=== PATIENT | female | born 1980 | race Caucasian/White ===

== ENCOUNTER 2016-04-27 10:51 | Emergency (ER) | payer OTHER ==
--- NOTE | 2016-04-27 11:10 | ED ---
Female Urogenital HPI - General Chief complaint: Vaginal Bleeding Stated complaint: Bleeding/8wks Time Seen by Provider: 04/27/16 10:58 Source: patient, RN notes reviewed Mode of arrival: ambulatory Limitations: no limitations - History of Present Illness Initial comments: 35 yo female presents to the ER with cc of vaginal bleeding in . Patient is a . Patient states she went to the condition of his blood in the toilet. Patient states that it is spotting. Patient has abdominal pain or cramping. Patient states she has not had an ultrasound this . Patient states she has not seen her POLICY DIRECTOR either. Patient states she was concerned with this. So she thought that she should be evaluated. Patient is not currently having any other that this time.Patient denies any recent fever, chills, shortness of breath, chest pain, back pain, abdominal pain, nausea vomiting, numbness or tingling, dysuria or hematuria, constipation or diarrhea, headaches or visual changes, or any other current symptoms. - Related Data Home Medications Medication Instructions Recorded Confirmed Pnv with Ca,No.72/Iron/FA 1 tab PO DAILY 04/27/16 04/27/16 [ Plus Tablet] Allergies Allergy/AdvReac Type Severity Reaction Status Date / Time latex Allergy Unknown Verified 04/27/16 11:05 Review of Systems ROS Statement: Those systems with pertinent positive or pertinent negative responses have been documented in the HPI. ROS Other: All systems not noted in ROS Statement are negative. Past Medical History Past Medical History: Hyperlipidemia, Seizure Disorder Additional Past Medical History / Comment(s): Migraines, last seizure 2010, UTIs. 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 She is independent. Smoking Status: Former smoker Past Alcohol Use History: None Reported Additional Past Alcohol Use History / Comment(s): Pt started smoking in 1991 and quit in 2014. Past Drug Use History: None Reported - Past Family History Father Family Medical History: Congestive Heart Failure (CHF), Liver Disease, Myocardial Infarction ([place]) Additional Family Medical History / Comment(s): Father of CHF at the age of 57yrs. He also had hepatitis C. Mother Family Medical History: Cancer, Thyroid Disorder Additional Family Medical History / Comment(s): Non hodgkins lymphoma, hypothyroid General Exam - General Exam Comments Initial Comments: General: The patient is awake and alert, in no distress, and does not appear acutely ill. Eye: Pupils are equal, round. Ears, nose, mouth and throat: There are moist mucous membrane. Neck: The neck is supple, there is no tenderness. Cardiovascular: There is a regular rate and rhythm. No murmur, rub or gallop is appreciated. Respiratory: Lungs are clear to auscultation, respirations are non-labored, breath sounds are equal. No wheezes, stridor, rales, or rhonchi. Gastrointestinal: Soft, non-distended, non-tender abdomen without masses or organomegaly noted. There is no rebound or guarding present. No CVA tenderness. Bowel sounds are unremarkable. Back: There is no tenderness to palpation in the midline. There is no obvious deformity. No rashes noted. Musculoskeletal: Normal ROM, no tenderness, There is no pedal edema. There is no calf tenderness or swelling. Sensation intact. Pulses equal bilaterally 2+. Neurological: CN II-XII intact, There are no obvious motor or sensory deficits. Coordination appears grossly intact. Speech is normal. Skin: Skin is warm and dry and no rashes or lesions are noted. Psychiatric: Cooperative, appropriate mood & affect, normal judgment. Limitations: no limitations External exam: Present: normal external exam Speculum exam: Present: vaginal bleeding (Minimal), other (Cervical os closed) Course Vital Signs 04/27/16 10:55 Temperature 98.1 F Pulse Rate 72 Respiratory 17 Rate Blood Pressure 146/83 O2 Sat by Pulse 99 Oximetry Medical Decision Making - Medical Decision Making 35-year-old female presents emergency Department chief complaint of vaginal bleeding in . This and patient's LAB WORK IS REVIEWED. AT THIS TIME WE DID SEND STD TESTING SHE STATES SHE'LL FOLLOW-UP WITH RESTLESSNESS WITH THE POLICY DIRECTOR. THIS TIME WE DID DISCUSS THE RESULTS. WE DISCUSSED FOLLOW-UP AND RETURN PARAMETERS. PATIENT STATED THAT SHE UNDERSTOOD AND ALL HER QUESTIONS HAVE BEEN ANSWERED. SHE WILL BE DISCHARGED. - Lab Data Result diagrams: 04/27/16 11:35 02/07/17 11:35 Lab Results 04/27/16 04/27/16 04/27/16 Range/Units 11:35 11:35 11:35 WBC 9.0 (3.8-10.6) k/uL RBC 4.51 (3.80-5.40) m/uL Hgb 13.2 (11.4-16.0) gm/dL Hct 40.0 (34.0-46.0) % MCV 88.7 (80.0-100.0) fL MCH 29.2 (25.0-35.0) pg MCHC 32.9 (31.0-37.0) g/dL RDW 13.1 (11.5-15.5) % Plt Count 331 (150-450) k/uL Neutrophils % 67 % Lymphocytes % 24 % Monocytes % 4 % Eosinophils % 2 % Basophils % 1 % Neutrophils # 6.0 (1.3-7.7) k/uL Lymphocytes # 2.2 (1.0-4.8) k/uL Monocytes # 0.4 (0-1.0) k/uL Eosinophils # 0.2 (0-0.7) k/uL Basophils # 0.1 (0-0.2) k/uL Sodium 140 (137-145) mmol/L Potassium 4.3 (3.5-5.1) mmol/L Chloride 102 (98-107) mmol/L Carbon Dioxide 25 (22-30) mmol/L Anion Gap 13 mmol/L BUN 10 (7-17) mg/dL Creatinine 0.62 (0.52-1.04) mg/dL Est GFR (MDRD) Af Amer >60 (>60 ml/min/1.73 sqM) Est GFR (MDRD) Non-Af >60 (>60 ml/min/1.73 sqM) Glucose 88 (74-99) mg/dL Calcium 9.6 (8.4-10.2) mg/dL Total Bilirubin 0.3 (0.2-1.3) mg/dL AST 18 (14-36) U/L ALT 25 (9-52) U/L Alkaline Phosphatase 68 (38-126) U/L Total Protein 7.4 (6.3-8.2) g/dL Albumin 4.3 (3.5-5.0) g/dL Urine Color Urine Appearance (Clear) Urine pH (5.0-8.0) Ur Specific [place] (1.001-1.035) Urine Protein (Negative) Urine Glucose (UA) (Negative) Urine Ketones (Negative) Urine Blood (Negative) Urine Nitrate (Negative) Urine Bilirubin (Negative) Urine Urobilinogen (<2.0) mg/dL Ur Leukocyte Esterase (Negative) Urine RBC (0-5) /hpf Urine WBC (0-5) /hpf Ur Squamous Epith Cells (0-4) /hpf Urine Bacteria (None) /hpf Urine Mucus (None) /hpf Blood Type O Positive Blood Type Recheck No 04/27/16 Range/Units 11:35 WBC (3.8-10.6) k/uL RBC (3.80-5.40) m/uL Hgb (11.4-16.0) gm/dL Hct (34.0-46.0) % MCV (80.0-100.0) fL MCH (25.0-35.0) pg MCHC (31.0-37.0) g/dL RDW (11.5-15.5) % Plt Count (150-450) k/uL Neutrophils % % Lymphocytes % % Monocytes % % Eosinophils % % Basophils % % Neutrophils # (1.3-7.7) k/uL Lymphocytes # (1.0-4.8) k/uL Monocytes # (0-1.0) k/uL Eosinophils # (0-0.7) k/uL Basophils # (0-0.2) k/uL Sodium (137-145) mmol/L Potassium (3.5-5.1) mmol/L Chloride (98-107) mmol/L Carbon Dioxide (22-30) mmol/L Anion Gap mmol/L BUN (7-17) mg/dL Creatinine (0.52-1.04) mg/dL Est GFR (MDRD) Af Amer (>60 ml/min/1.73 sqM) Est GFR (MDRD) Non-Af (>60 ml/min/1.73 sqM) Glucose (74-99) mg/dL Calcium (8.4-10.2) mg/dL Total Bilirubin (0.2-1.3) mg/dL AST (14-36) U/L ALT (9-52) U/L Alkaline Phosphatase (38-126) U/L Total Protein (6.3-8.2) g/dL Albumin (3.5-5.0) g/dL Urine Color Light Yellow Urine Appearance Cloudy H (Clear) Urine pH 6.5 (5.0-8.0) Ur Specific [place] 1.006 (1.001-1.035) Urine Protein Negative (Negative) Urine Glucose (UA) Negative (Negative) Urine Ketones Negative (Negative) Urine Blood Moderate H (Negative) Urine Nitrate Negative (Negative) Urine Bilirubin Negative (Negative) Urine Urobilinogen <2.0 (<2.0) mg/dL Ur Leukocyte Esterase Small H (Negative) Urine RBC 1 (0-5) /hpf Urine WBC 1 (0-5) /hpf Ur Squamous Epith Cells 5 H (0-4) /hpf Urine Bacteria Rare H (None) /hpf Urine Mucus Rare H (None) /hpf Blood Type Blood Type Recheck Disposition Clinical Impression: , Subchorionic bleed Disposition: HOME SELF-CARE Condition: Stable Instructions: (ED) Additional Instructions: Please use medication as discussed. Please follow up with family doctor if symptoms have not improved over the next two days. Please return to the emergency room if your symptoms increase or worsen or for any other concerns. Referrals: Joana Carmen MD [Primary Care Provider] - 1-2 days Time of Disposition: 12:41
[2016-04-27 11:51] LABS: Basophils # (A) 0.1 k/uL (0-0.2); Basophils % (A) 1 %; CH 30.3; CHCM 34.3; Eosinophils # (A) 0.2 k/uL (0-0.7); Eosinophils % (A) 2 %; HDW 2.48; HGB 13.2 gm/dL (11.4-16.0); Luc % (Auto) 2; Lymphocytes # (A) 2.2 k/uL (1.0-4.8); Lymphocytes % (A) 24 %; MCH 29.2 pg (25.0-35.0); MCHC 32.9 g/dL (31.0-37.0); MCV 88.7 fL (80.0-100.0); Mean Platelet Volume 5.9; Monocytes # (A) 0.4 k/uL (0-1.0); Monocytes % (A) 4 %; Neutrophils % (A) 67 %; RBC 4.51 m/uL (3.80-5.40); RDW 13.1 % (11.5-15.5)
[2016-04-27 11:53] LABS: Appearance,Urine Cloudy (Clear); Bacteria,Urine Rare /hpf; Bilirubin,Urine Negative (Negative); Glucose,Urine (UA) Negative (Negative); Ketones,Urine Negative (Negative); Leukocyte Esterase,Urine Small (Negative); Mucus,Urine Rare /hpf; Nitrite,Urine Negative (Negative); PH, Urine 6.5 (5.0-8.0); Particle Count 3477; Protein,Urine Negative (Negative); RBC,Urine 1 /hpf (0-5); Specific Gravity,Urine 1.006 (1.001-1.035); Squamous Epithelial Cell,Urine 5 /hpf (0-4); UA Billing (MACRO vs. MICRO) MICRO; Urobilinogen,Urine <2.0 mg/dL (<2.0); WBC,Urine 1 /hpf (0-5)
[2016-04-27 12:02] LABS: ALT 25 U/L (9-52); AST 18 U/L (14-36); Alkaline Phosphatase 68 U/L (38-126); Anion Gap 13 mmol/L; Blood Urea Nitrogen 10 mg/dL (7-17); Calcium 9.6 mg/dL (8.4-10.2); Carbon Dioxide 25 mmol/L (22-30); Chloride 102 mmol/L (98-107); Glucose 88 mg/dL (74-99); Non-African American GFR(MDRD) >60 (>60 ml/min/1.73 sqM); Potassium 4.3 mmol/L (3.5-5.1); Sodium 140 mmol/L (137-145); Total Bilirubin 0.3 mg/dL (0.2-1.3); Total Protein 7.4 g/dL (6.3-8.2)
--- NOTE | 2016-04-27 12:24 | US ---
EXAMINATION TYPE: US OB <=14 wks transvag DATE OF EXAM: 04/27/2016 12:04 PM COMPARISON: NONE CLINICAL HISTORY: Pain. Spotting, right oopherectomy EXAM PERFORMED: Transvaginal (TV) and Transabdominal (TA) EXAM MEASUREMENTS: GESTATIONAL AGE / DATING Physician Established: not established Dates by LMP: (7 weeks/5 days) EDC: 12/09/16 Dates by First Scan: no prior scan Dates by Current Scan for: (8 weeks/0 days) EDC: 12/07/16 MATERNAL ANATOMY Uterus: 12.1 x 6.6 x 8.2cm Right Ovary: surgically absent Left Ovary: unable to visualize Post CDS / Adnexa: appears wnl Presence of free fluid: no Presence of subchorionic bleed: yes, inferior to gestational sac = 1.6cm GESTATION / SURVEY CRL: 1.7cm (8 weeks/0 days) Yolk Sac (normal less than 6mm): 0.5cm Heart Rate: 167 bpm Rhythm: Normal IUP: Viable IUP Date of LMP: 03/04/16 Beta HcG (if available): unavailable IMPRESSION: 1. Single viable IUP 8wks/0days with JES of 12/07/16. 2. Small subchorionic hemorrhage inferior to gestational sac.
[2016-04-27 12:43] LABS: HCG,Quantitative Serum 69180.4 mIU/mL
[2016-04-27 12:55] VITALS: BP 140/90; PULSE 68; RESP 20; TEMP 98.5
== END 2016-04-27 12:54 | disposition home or self-care (01) ==
LOC: EC 10:51
DX: O20.9 Hemorrhage in early pregnancy, unspecified (principal); Z3A.08 8 weeks gestation of pregnancy; Z91.040 Latex allergy status; Z87.891 Personal history of nicotine dependence
CPT/HCPCS: 36415; 76801; 76817; 80053; 81001; 84702; 85025; 86900; 86901; 87070; 87086; 87205; 87491; 87591; 87808; 99284

== ENCOUNTER 2016-05-29 16:06 | Emergency (ER) | payer OTHER ==
[2016-05-29 16:12] VITALS: BP 124/63; PULSE 72; RESP 20; TEMP 98
--- NOTE | 2016-05-29 16:48 | ED ---
Female Urogenital HPI - General Chief complaint: Vaginal Bleeding Stated complaint: moderate to heavy spotting; 13 weeks pg Time Seen by Provider: 05/29/16 16:16 Source: patient, RN notes reviewed Mode of arrival: ambulatory Limitations: no limitations - History of Present Illness Initial comments: This a 35-year-old female presents emergency Department chief complaint vaginal bleeding. Patient is A3 presents today with chief complaint vaginal bleeding. Patient states she did have some bleeding early on the around 8 weeks. Patient states she just saw her MARKETING ANALYTICS ANALYST and clinical biochemical geneticist and had ultrasound which showed no acute abnormality. Patient denies any dysuria or hematuria. Denies any nausea vomiting diarrhea constipation. She states she has very minimal to no cramping or pain at all at this time. Patient had prior C-sections. Patient MARKETING ANALYTICS ANALYST is in [place]. - Related Data Home Medications Medication Instructions Recorded Confirmed Pnv with Ca,No.72/Iron/FA 1 tab PO DAILY 04/27/16 04/27/16 [ Plus Tablet] Allergies Allergy/AdvReac Type Severity Reaction Status Date / Time latex Allergy Unknown Verified 05/29/16 16:12 Review of Systems ROS Statement: Those systems with pertinent positive or pertinent negative responses have been documented in the HPI. ROS Other: All systems not noted in ROS Statement are negative. Past Medical History Past Medical History: Hyperlipidemia, Seizure Disorder Additional Past Medical History / Comment(s): Migraines, last seizure 2010, UTIs. 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 She is independent. Smoking Status: Former smoker Past Alcohol Use History: None Reported Additional Past Alcohol Use History / Comment(s): Pt started smoking in 1991 and quit in 2014. Past Drug Use History: None Reported - Past Family History Father Family Medical History: Congestive Heart Failure (CHF), Liver Disease, Myocardial Infarction ([place]) Additional Family Medical History / Comment(s): Father of CHF at the age of 57yrs. He also had hepatitis C. Mother Family Medical History: Cancer, Thyroid Disorder Additional Family Medical History / Comment(s): Non hodgkins lymphoma, hypothyroid General Exam Limitations: no limitations General appearance: alert, in no apparent distress, obese Respiratory exam: Present: normal lung sounds bilaterally. Absent: respiratory distress, wheezes, rales, rhonchi, stridor Cardiovascular Exam: Present: regular rate, normal rhythm, normal heart sounds. Absent: systolic murmur, diastolic murmur, rubs, gallop, clicks GI/Abdominal exam: Present: soft, normal bowel sounds. Absent: distended, tenderness, guarding, rebound, rigid Back exam: Absent: CVA tenderness (R), CVA tenderness (L) Skin exam: Present: warm, dry, intact, normal color. Absent: rash Course Vital Signs 05/29/16 16:10 Temperature 98.0 F Pulse Rate 72 Respiratory 20 Rate Blood Pressure 124/63 O2 Sat by Pulse 98 Oximetry Medical Decision Making - Medical Decision Making 35-year-old female presented emergency department vaginal bleeding . Patient's ultrasound shows no acute abnormality. Patient be discharged at this time. Patient is O+ blood type. - Lab Data Lab Results 05/29/16 Range/Units 17:08 Urine Color Yellow Urine Appearance Clear (Clear) Urine pH 6.5 (5.0-8.0) Ur Specific Clear 1.010 (1.001-1.035) Urine Protein Negative (Negative) Urine Glucose (UA) Negative (Negative) Urine Ketones Negative (Negative) Urine Blood Moderate H (Negative) Urine Nitrate Negative (Negative) Urine Bilirubin Negative (Negative) Urine Urobilinogen <2.0 (<2.0) mg/dL Ur Leukocyte Esterase Negative (Negative) Urine RBC 11 H (0-5) /hpf Urine WBC 1 (0-5) /hpf Ur Squamous Epith Cells 1 (0-4) /hpf Urine Bacteria Rare H (None) /hpf Urine Mucus Rare H (None) /hpf Disposition Clinical Impression: Threatened miscarriage Disposition: HOME SELF-CARE Condition: Stable Instructions: Threatened Miscarriage (ED) Additional Instructions: Please return to the Emergency Department if symptoms worsen or any other concerns. Time of Disposition: 17:24
--- NOTE | 2016-05-29 17:04 | US ---
EXAMINATION TYPE: US OB <= 14 wk fetus DATE OF EXAM: 05/29/2016 4:50 PM COMPARISON: 04/27/2016 CLINICAL HISTORY: Pain. Pt states heavy vaginal bleeding x 2 hours/ denies pain or cramping EXAM PERFORMED: Transabdominal (TA) EXAM MEASUREMENTS: GESTATIONAL AGE / DATING Physician Established: (12 weeks/2 days) EDC: 12/09/2016 Dates by LMP: (12 weeks/2 days) EDC: 12/09/2016 Dates by First Scan: (12 weeks/4 days) EDC: 12/07/2016 Dates by Current Scan for: (12 weeks/5 days) EDC: 12/06/2016 MATERNAL ANATOMY Uterus: 16.8 x 8.2 x 11.7 cm Right Ovary: Surgically Absent Left Ovary: 2.1 x 1.8 x 2.2 Post CDS / Adnexa: wnl Presence of free fluid: No Presence of subchorionic bleed: No GESTATION / SURVEY CRL: 6.4 cm (12 weeks/5 days) MSD: wnl Heart Rate: 154 bpm Rhythm: Normal IUP: Viable IUP Date of LMP: 03/04/2016 TECHNOLOGIST IMPRESSION: Morbidly obese pt, difficult to scan Single, viable IUP/ No abnormality visualized at this time to account for pt's symptoms IMPRESSION: The ultrasound gestational age is 12 weeks 5 days. I see no complicating process. There is satisfacto ry growth compared to last exam.
[2016-05-29 17:18] LABS: Appearance,Urine Clear (Clear); Bacteria,Urine Rare /hpf; Bilirubin,Urine Negative (Negative); Glucose,Urine (UA) Negative (Negative); Ketones,Urine Negative (Negative); Leukocyte Esterase,Urine Negative (Negative); Mucus,Urine Rare /hpf; Nitrite,Urine Negative (Negative); PH, Urine 6.5 (5.0-8.0); Particle Count 2463; Protein,Urine Negative (Negative); RBC,Urine 11 /hpf (0-5); Squamous Epithelial Cell,Urine 1 /hpf (0-4); UA Billing (MACRO vs. MICRO) MICRO; Urobilinogen,Urine <2.0 mg/dL (<2.0); WBC,Urine 1 /hpf (0-5)
== END 2016-05-29 17:33 | disposition home or self-care (01) ==
LOC: EC 16:06
DX: O20.0 Threatened abortion (principal); O99.211 Obesity complicating pregnancy, first trimester; Z3A.12 12 weeks gestation of pregnancy; Z91.040 Latex allergy status; Z87.891 Personal history of nicotine dependence
CPT/HCPCS: 76801; 81001; 99284

== ENCOUNTER 2016-07-16 07:22 | Emergency (ER) | payer OTHER ==
--- NOTE | 2016-07-16 08:12 | ED ---
Abdominal Pain HPI - General Chief Complaint: Abdominal Pain Stated Complaint: 19 WEEKS , ABDOMINAL PAIN Time Seen by Provider: 07/16/16 08:02 Source: patient, RN notes reviewed Mode of arrival: wheelchair Limitations: no limitations - History of Present Illness Initial Comments: Patient is a 36-year-old female presents to the emergency room for evaluation of abdominal pain. Patient states she is about 17 weeks . Patient is . Patient states she woke up this morning around 4:30 AM and felt bilateral lower pelvic pain. Patient states after she urinated the pain did not get any better. Patient states she still continuing to have pain so she thought she should be evaluated. Patient states her ACCOUNTING INTERN is in [place]. Patient has a history of 2 prior C-sections and a right oophrectomy. Patient denies any other abdominal surgeries. Patient denies vaginal bleeding. Patient denies abnormal vaginal discharge or vaginal discomfort. Patient denies pain or burning during urination trouble urinating. Patient denies nausea or vomiting. Patient denies taking anything for pain. Patient denies back pain. Patient's chest pain. Patient shortness of breath. Patient denies headache or dizziness. - Related Data Home Medications Medication Instructions Recorded Confirmed Pnv with Ca,No.72/Iron/FA 1 tab PO DAILY 04/27/16 07/16/16 [ Plus Tablet] Cetirizine HCl [Zyrtec] 10 mg PO DAILY 07/16/16 07/16/16 Cholecalciferol [Vitamin D3] 1,000 unit PO DAILY 07/16/16 07/16/16 Allergies Allergy/AdvReac Type Severity Reaction Status Date / Time avocado Allergy Rash/Hives Verified 07/16/16 08:15 banana Allergy Rash/Hives Verified 07/16/16 08:15 latex Allergy Rash/Hives Verified 07/16/16 08:15 tomato Allergy Rash/Hives Verified 07/16/16 08:15 Review of Systems ROS Statement: Those systems with pertinent positive or pertinent negative responses have been documented in the HPI. ROS Other: All systems not noted in ROS Statement are negative. Past Medical History Past Medical History: Hyperlipidemia, Seizure Disorder Additional Past Medical History / Comment(s): Migraines, last seizure 2010, UTIs. 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 She is independent. Smoking Status: Former smoker Past Alcohol Use History: None Reported Additional Past Alcohol Use History / Comment(s): Pt started smoking in 1991 and quit in 2014. Past Drug Use History: None Reported - Past Family History Father Family Medical History: Congestive Heart Failure (CHF), Liver Disease, Myocardial Infarction ([place]) Additional Family Medical History / Comment(s): Father of CHF at the age of 57yrs. He also had hepatitis C. Mother Family Medical History: Cancer, Thyroid Disorder Additional Family Medical History / Comment(s): Non hodgkins lymphoma, hypothyroid General Exam - General Exam Comments Initial Comments: Sitting in exam room, no acute distress. Limitations: no limitations General appearance: alert, in no apparent distress Head exam: Present: atraumatic, normocephalic, normal inspection Eye exam: Present: normal appearance Pupils: Present: normal accommodation ENT exam: Present: normal exam Neck exam: Present: normal inspection Respiratory exam: Present: normal lung sounds bilaterally. Absent: respiratory distress Cardiovascular Exam: Present: regular rate, normal rhythm, normal heart sounds GI/Abdominal exam: Present: soft, tenderness (Right lower quadrant and left lower quadrant pain suprapubic tenderness), normal bowel sounds. Absent: distended, guarding, rebound, rigid Extremities exam: Present: normal inspection Back exam: Present: normal inspection Neurological exam: Present: alert, oriented X3, CN II-XII intact, normal gait Psychiatric exam: Present: normal affect, normal mood Skin exam: Present: warm, dry, intact, normal color. Absent: rash Course Vital Signs 07/16/16 07:29 Temperature 97.4 F L Pulse Rate 72 Respiratory 16 Rate Blood Pressure 109/61 O2 Sat by Pulse 98 Oximetry Medical Decision Making - Medical Decision Making Patient is a 36-year-old female presents to the emergency room for evaluation of abdominal pain. OB ultrasound: Viable single IUP measuring 19 weeks 1 day with a heart rate of 1 31 bpm and an estimated delivery date of 12/09/2016. Normal self while presentation to the fetus is currently seen. There is no ultrasound evidence for central previa. Amniotic fluid index is within normal limits. biometry measurements are can coordinate and felt within normal limits. (per radiology) Results discussed with patient. Advised patient to contact her OB within the next 24-48 hours for further evaluation. Patient declined any pain medications while she was here. Patient states she understands everything that was discussed with her. Return parameters discussed. Case discussed with Dr. Anderson. - Lab Data Lab Results 07/16/16 Range/Units 07:40 Urine Color Yellow Urine Appearance Cloudy H (Clear) Urine pH 5.5 (5.0-8.0) Ur Specific [place] 1.023 (1.001-1.035) Urine Protein Trace H (Negative) Urine Glucose (UA) Negative (Negative) Urine Ketones 1+ H (Negative) Urine Blood Negative (Negative) Urine Nitrite Negative (Negative) Urine Bilirubin Negative (Negative) Urine Urobilinogen <2.0 (<2.0) mg/dL Ur Leukocyte Esterase Small H (Negative) Urine RBC 5 (0-5) /hpf Urine WBC 3 (0-5) /hpf Ur Squamous Epith Cells 12 H (0-4) /hpf Urine Bacteria Rare H (None) /hpf Urine Mucus Rare H (None) /hpf - Radiology Data Radiology results: report reviewed, image reviewed Disposition Clinical Impression: Abdominal pain affecting Disposition: HOME SELF-CARE Condition: Good Instructions: Abdominal Pain in (ED) Additional Instructions: Take Tylenol as needed for pain. Please follow-up with ACCOUNTING INTERN in 24-48 hours for reevaluation. If any new symptom arises or symptoms worsen, return to ER as soon as possible. Referrals: Joana Carmen MD [Primary Care Provider] - 1-2 days Time of Disposition: 09:40
[2016-07-16 08:21] LABS: Appearance,Urine Cloudy (Clear); Bacteria,Urine Rare /hpf; Bilirubin,Urine Negative (Negative); Glucose,Urine (UA) Negative (Negative); Ketones,Urine 1+ (Negative); Leukocyte Esterase,Urine Small (Negative); Mucus,Urine Rare /hpf; Nitrite,Urine Negative (Negative); PH, Urine 5.5 (5.0-8.0); Particle Count 17124; Protein,Urine Trace (Negative); RBC,Urine 5 /hpf (0-5); Specific Gravity,Urine 1.023 (1.001-1.035); Squamous Epithelial Cell,Urine 12 /hpf (0-4); UA Billing (MACRO vs. MICRO) MICRO; Urobilinogen,Urine <2.0 mg/dL (<2.0); WBC,Urine 3 /hpf (0-5)
--- NOTE | 2016-07-16 09:28 | US ---
EXAMINATION TYPE: US OB >= 14 wk fetus DATE OF EXAM: 07/16/2016 8:46 AM COMPARISON: US first trimester May 29, 2016. CLINICAL HISTORY: PainPelvic pain x 1 day, 6, para 2, morbidly obese patient TECHNIQUE: Transabdominal (TA) GESTATIONAL AGE / DATING Physician Established: (19 weeks/1 days) EDC: 12/09/2016 Dates by LMP: (19 weeks/1 days) EDC: 12/09/2016 Dates by First Scan: (19 weeks/3 days) EDC: 12/07/2016 Dates by Current Scan: (19 weeks/1 days) EDC: 12/09/2016 SURVEY IUP: Single PLACENTA: Anterior PREVIA: No Previa JUSTIN: 12.0 cm Normal CERVICAL LENGTH (transabdominal: norm > 3.0cm): 3.2 cm BIOMETRY PRESENTATION: Vertex LIE: Longitudinal BPD: 4.5 cm 19 weeks / 3 days HC: 16.1 cm 18 weeks / 6 days AC: 13.8 cm 19 weeks / 2 days FL: 3.0 cm 19 weeks / 2 days ESTIMATED WEIGHT IN GRAMS: 282.3 grams ESTIMATED WEIGHT IN LBS/OZS: 0 lbs. 10 oz. WEIGHT PERCENTAGE BASED ON ESTABLISHED DATES: 52% HC/AC: 1.17 Normal FL/AC: 21.86 HEART RATE: 131 bpm RHYTHM: Normal MATERNAL WALL MEASUREMENT: 4.3 cm from skin to anterior uterine wall (if exam limited due to body hab itus). Viable single IUP measuring 19 weeks 1 day with a heart rate of 131bpm and an estimated delivery date of 12/09/2016. Exam is suboptimal due to patient's large body habitus. Single live intrauterine gestation is redemon strated. Normal cephalad presentation to fetus is currently seen. There is no ultrasound evidence for placenta previa. Amniotic fluid index is within normal limits. biometry measurements are conco rdant and felt within normal limits. Detailed anatomical survey not performed on emergent study. IMPRESSION: As above. No ultrasound evidence for complication.
[2016-07-16 09:55] VITALS: BP 118/58; PULSE 60; RESP 18; TEMP 97.6
== END 2016-07-16 09:55 | disposition home or self-care (01) ==
LOC: EC 07:22
DX: O26.892 Other specified pregnancy related conditions, second trimester (principal); R10.2 Pelvic and perineal pain; Z3A.19 19 weeks gestation of pregnancy; Z91.040 Latex allergy status; Z91.018 Allergy to other foods; Z87.891 Personal history of nicotine dependence; Z86.69 Personal history of other diseases of the nervous system and sense organs; Z86.59 Personal history of other mental and behavioral disorders
CPT/HCPCS: 76805; 81001; 99284

== ENCOUNTER 2016-12-24 13:27 | Emergency (ER) | payer OTHER ==
[2016-12-24 13:45] VITALS: TEMP 98.2
[2016-12-24] MEDS ORDERED: SODIUM CHLORIDE 0.9% 1,000 ML IV STA (13:59)
--- NOTE | 2016-12-24 14:31 | ED ---
General Adult HPI - General Chief complaint: Abdominal Pain Stated complaint: post pain Time Seen by Provider: 12/24/16 13:51 Source: patient, RN notes reviewed Mode of arrival: ambulatory Limitations: no limitations - History of Present Illness Initial comments: 36-year-old female presents to the emergency department with a chief complaint of right-sided abdominal pain. Patient states that she must have pulled there is something in her and she has pain when she moves her abdomen. She touches the right side of her incision. She states now bruising or drainage. She denies any nausea vomiting with this. She centimeter that everything was okay. She denies any fluid collection that she's noticed. She states just tender on. Touch or if she moves or twists or lifts she has pain as well. Patient denies any other symptoms at this time. Patient states that her was about 3 weeks ago.Patient denies any recent fever, chills, shortness of breath, chest pain, back pain, abdominal pain, nausea vomiting, numbness or tingling, dysuria or hematuria, constipation or diarrhea, headaches or visual changes, or any other current symptoms. - Related Data Home Medications Medication Instructions Recorded Confirmed Pnv,Calcium 72/Iron/Folic Acid 1 tab PO HS 04/27/16 12/24/16 [ Plus Tablet] Cholecalciferol [Vitamin D3] 1,000 unit PO HS 07/16/16 12/24/16 Fenugreek 1 cap PO TID 12/24/16 12/24/16 Folic Acid 0.4 mg PO HS 12/24/16 12/24/16 Niacin 500 mg PO HS 12/24/16 12/24/16 Zinc Gluconate [Zinc] 50 mg PO HS 12/24/16 12/24/16 Allergies Allergy/AdvReac Type Severity Reaction Status Date / Time avocado Allergy Rash/Hives Verified 12/24/16 14:11 banana Allergy Rash/Hives Verified 12/24/16 14:11 cashew nut Allergy Unknown Verified 12/24/16 14:13 cucumber Allergy Unknown Verified 12/24/16 14:13 latex Allergy Rash/Hives Verified 12/24/16 14:11 rober Allergy Unknown Verified 12/24/16 14:13 Melon Allergy Unknown Verified 12/24/16 14:13 papaya Allergy Unknown Verified 12/24/16 14:13 pear Allergy Unknown Verified 12/24/16 14:13 tomato Allergy Rash/Hives Verified 12/24/16 14:11 Review of Systems ROS Statement: Those systems with pertinent positive or pertinent negative responses have been documented in the HPI. ROS Other: All systems not noted in ROS Statement are negative. Past Medical History Past Medical History: Hyperlipidemia, Seizure Disorder Additional Past Medical History / Comment(s): Migraines, last seizure 2010, UTIs. 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 He also had hepatitis C. Mother Family Medical History: Cancer, Thyroid Disorder Additional Family Medical History / Comment(s): Non hodgkins lymphoma, hypothyroid General Exam - General Exam Comments Initial Comments: General: The patient is awake and alert, in no distress, and does not appear acutely ill. Eye: Pupils are equal, round. Ears, nose, mouth and throat: There are moist mucous membranes. Neck: The neck is supple, there is no tenderness. Cardiovascular: There is a regular rate and rhythm. No murmur, rub or gallop is appreciated. Respiratory: Lungs are clear to auscultation, respirations are non-labored, breath sounds are equal. No wheezes, stridor, rales, or rhonchi. Gastrointestinal: Soft, non-distended, no tenderness along the incision scar of the the right side. Does appear to be well-healing at this time. Nontender throughout the rest of the abdomen without masses or organomegaly noted. There is no rebound or guarding present. No CVA tenderness. Bowel sounds are unremarkable. Neurological: CN II-XII intact, There are no obvious motor or sensory deficits. Coordination appears grossly intact. Speech is normal. Skin: Skin is warm and dry and no rashes or lesions are noted. Psychiatric: Cooperative, appropriate mood & affect, normal judgment. Limitations: no limitations Course Vital Signs 12/24/16 13:40 Temperature 98.2 F Pulse Rate 70 Respiratory 18 Rate Blood Pressure 103/70 O2 Sat by Pulse 99 Oximetry Medical Decision Making - Medical Decision Making 36 yo female presents for pain at the incision site of her scar in the right side. This and laboratory is reviewed and negative. At this time we did discuss this is most likely part of feeling. We discussed care of this appropriate follow-up. Return parameters. Patient stated she understood and she is in agreement with this plan. All questions have been answered. She'll be discharged. - Lab Data Result diagrams: 12/24/16 14:30 12/24/16 14:30 Lab Results 12/24/16 12/24/16 12/24/16 Range/Units 14:27 14:30 14:30 WBC 7.5 (3.8-10.6) k/uL RBC 4.62 (3.80-5.40) m/uL Hgb 14.3 (11.4-16.0) gm/dL Hct 42.4 (34.0-46.0) % MCV 91.8 (80.0-100.0) fL MCH 31.0 (25.0-35.0) pg MCHC 33.7 (31.0-37.0) g/dL RDW 12.7 (11.5-15.5) % Plt Count 324 (150-450) k/uL Neutrophils % 58 % Lymphocytes % 32 % Monocytes % 4 % Eosinophils % 3 % Basophils % 1 % Neutrophils # 4.4 (1.3-7.7) k/uL Lymphocytes # 2.4 (1.0-4.8) k/uL Monocytes # 0.3 (0-1.0) k/uL Eosinophils # 0.3 (0-0.7) k/uL Basophils # 0.1 (0-0.2) k/uL Sodium 140 (137-145) mmol/L Potassium 5.0 (3.5-5.1) mmol/L Chloride 103 (98-107) mmol/L Carbon Dioxide 27 (22-30) mmol/L Anion Gap 10 mmol/L BUN 13 (7-17) mg/dL Creatinine 0.81 (0.52-1.04) mg/dL Est GFR (MDRD) Af Amer >60 (>60 ml/min/1.73 sqM) Est GFR (MDRD) Non-Af >60 (>60 ml/min/1.73 sqM) Glucose 88 (74-99) mg/dL Calcium 9.3 (8.4-10.2) mg/dL Total Bilirubin 0.3 (0.2-1.3) mg/dL AST 27 (14-36) U/L ALT 39 (9-52) U/L Alkaline Phosphatase 85 (38-126) U/L Total Protein 7.1 (6.3-8.2) g/dL Albumin 4.2 (3.5-5.0) g/dL Urine Color Light Yellow Urine Appearance Clear (Clear) Urine pH 5.5 (5.0-8.0) Ur Specific [place] 1.010 (1.001-1.035) Urine Protein Negative (Negative) Urine Glucose (UA) Negative (Negative) Urine Ketones Negative (Negative) Urine Blood Small H (Negative) Urine Nitrite Negative (Negative) Urine Bilirubin Negative (Negative) Urine Urobilinogen <2.0 (<2.0) mg/dL Ur Leukocyte Esterase Negative (Negative) Urine RBC <1 (0-5) /hpf Urine WBC 2 (0-5) /hpf Ur Squamous Epith Cells 1 (0-4) /hpf Urine Mucus Rare H (None) /hpf Disposition Clinical Impression: Abdominal pain, Abdominal muscle strain Disposition: HOME SELF-CARE Condition: Stable Instructions: Abdominal Pain (ED) Additional Instructions: Please use medication as discussed. Please follow up with family doctor if symptoms have not improved over the next two days. Please return to the emergency room if your symptoms increase or worsen or for any other concerns. Referrals: Brandt Livingston MD [Primary Care Provider] - 1-2 days Time of Disposition: 15:12
[2016-12-24 14:49] LABS: Basophils # (A) 0.1 k/uL (0-0.2); Basophils % (A) 1 %; CH 30.7; CHCM 33.5; Eosinophils # (A) 0.3 k/uL (0-0.7); Eosinophils % (A) 3 %; HCT 42.4 % (34.0-46.0); HDW 2.66; HGB 14.3 gm/dL (11.4-16.0); Luc # (Auto) 0.14; Luc % (Auto) 2; Lymphocytes # (A) 2.4 k/uL (1.0-4.8); Lymphocytes % (A) 32 %; MCHC 33.7 g/dL (31.0-37.0); MCV 91.8 fL (80.0-100.0); Mean Platelet Volume 6.3; Monocytes # (A) 0.3 k/uL (0-1.0); Monocytes % (A) 4 %; Neutrophils # (A) 4.4 k/uL (1.3-7.7); Neutrophils % (A) 58 %; RBC 4.62 m/uL (3.80-5.40); RDW 12.7 % (11.5-15.5); WBC 7.5 k/uL (3.8-10.6); WBC (Perox) 7.49
[2016-12-24 14:51] LABS: Appearance,Urine Clear (Clear); Bilirubin,Urine Negative (Negative); Glucose,Urine (UA) Negative (Negative); Ketones,Urine Negative (Negative); Leukocyte Esterase,Urine Negative (Negative); Mucus,Urine Rare /hpf; Nitrite,Urine Negative (Negative); PH, Urine 5.5 (5.0-8.0); Particle Count 1428; Protein,Urine Negative (Negative); RBC,Urine <1 /hpf (0-5); Squamous Epithelial Cell,Urine 1 /hpf (0-4); UA Billing (MACRO vs. MICRO) MICRO; Urobilinogen,Urine <2.0 mg/dL (<2.0); WBC,Urine 2 /hpf (0-5)
[2016-12-24 14:59] LABS: ALT 39 U/L (9-52); AST 27 U/L (14-36); Alkaline Phosphatase 85 U/L (38-126); Anion Gap 10 mmol/L; Blood Urea Nitrogen 13 mg/dL (7-17); Calcium 9.3 mg/dL (8.4-10.2); Carbon Dioxide 27 mmol/L (22-30); Chloride 103 mmol/L (98-107); Glucose 88 mg/dL (74-99); Non-African American GFR(MDRD) >60 (>60 ml/min/1.73 sqM); Sodium 140 mmol/L (137-145); Total Bilirubin 0.3 mg/dL (0.2-1.3); Total Protein 7.1 g/dL (6.3-8.2)
[2016-12-24 15:37] VITALS: BP 115/62; PULSE 54; RESP 17
== END 2016-12-24 15:41 | disposition home or self-care (01) ==
LOC: EC 13:27
DX: S39.011A Strain of muscle, fascia and tendon of abdomen, initial encounter (principal); Z98.51 Tubal ligation status; Z79.899 Other long term (current) drug therapy; Z91.018 Allergy to other foods; Z91.040 Latex allergy status; X58.XXXA Exposure to other specified factors, initial encounter
CPT/HCPCS: 36415; 80053; 81001; 85025; 96360; 99284

== ENCOUNTER 2018-07-28 23:52 | Emergency (ER) | payer BC, OTHER ==
[2018-07-29 00:03] VITALS: RESP 16
--- NOTE | 2018-07-29 00:08 | ED ---
Allergic Reaction HPI - General Chief complaint: Allergic Reaction Stated complaint: Poss Allergic Reaction Time Seen by Provider: 07/29/18 00:07 Source: patient Mode of arrival: ambulatory Limitations: no limitations - History of Present Illness Initial Comments: There is a 38-year-old female who presents to the emergency department today for possible ALLERGIC reaction. Patient has multiple food ALLERGY she states that she went to dinner tonight and ordered a hamburger with no tomato she is concerned that a tomato may have touched her hamburger before he came to her. She reports that she ate this with no difficulty but around 10 PM she began feeling like she had hives on her chest and some itchy in the skin on her chest. She then reports feeling like maybe there was some scratchiness in her throat she took 50 mg of Benadryl and came to the ER for evaluation. Patient reports she has history of ALLERGIC reactions in the past, she usually develops hives and itchiness. She's never had anaphylactic shock. She does have an EpiPen she did not use it. Patient states that she is ALLERGIC to tomatoes in the make her itch and have hives. She reports that she is only ALLERGIC to rock tomatoes and can tolerate tomato sauces tomato soups and catchup without difficulty. - Related Data Home Medications Medication Instructions Recorded Confirmed Pnv,Calcium 72/Iron/Folic Acid 1 tab PO HS 04/27/16 12/24/16 [ Plus Tablet] Cholecalciferol [Vitamin D3] 1,000 unit PO HS 07/16/16 12/24/16 Fenugreek 1 cap PO TID 12/24/16 12/24/16 Folic Acid 0.4 mg PO HS 12/24/16 12/24/16 Niacin 500 mg PO HS 12/24/16 12/24/16 Zinc Gluconate [Zinc] 50 mg PO HS 12/24/16 12/24/16 Allergies Allergy/AdvReac Type Severity Reaction Status Date / Time avocado Allergy Rash/Hives Verified 07/29/18 00:03 banana Allergy Rash/Hives Verified 07/29/18 00:03 cashew nut Allergy Unknown Verified 07/29/18 00:03 cucumber Allergy Unknown Verified 07/29/18 00:03 latex Allergy Rash/Hives Verified 07/29/18 00:03 rober Allergy Unknown Verified 07/29/18 00:03 Melon Allergy Unknown Verified 07/29/18 00:03 papaya Allergy Unknown Verified 07/29/18 00:03 pear Allergy Unknown Verified 07/29/18 00:03 tomato Allergy Rash/Hives Verified 07/29/18 00:03 Review of Systems ROS Statement: Those systems with pertinent positive or pertinent negative responses have been documented in the HPI. ROS Other: All systems not noted in ROS Statement are negative. Past Medical History Past Medical History: Hyperlipidemia, Seizure Disorder Additional Past Medical History / Comment(s): Migraines, last seizure 2010, UTIs. 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 He also had hepatitis C. Mother Family Medical History: Cancer, Thyroid Disorder Additional Family Medical History / Comment(s): Non hodgkins lymphoma, hypothyroid General Exam - General Exam Comments Initial Comments: Physical Exam GENERAL: Patient is well-developed and well-nourished. Patient is nontoxic and well-hydrated and is in no distress. HENT: Normocephalic, Atraumatic. EYES: PERRL, EOMI PULMONARY: Unlabored respirations. No stridor No rales rhonchi or wheezing CARDIOVASCULAR: There is a regular rate and rhythm without any murmurs gallops or rubs. ABDOMEN: Soft and nontender with normal bowel sounds. SKIN: Skin is clear with no lesions or rashes and otherwise unremarkable. No hives noted : Deferred NEUROLOGIC: Patient is alert and oriented x3. Moving all extremities spontaneously MUSCULOSKELETAL: Normal extremities with adequate strength and full range of motion. No lower extremity swelling or edema. No calf tenderness. PSYCHIATRIC: Normal psychiatric evaluation. Limitations: no limitations Course Vital Signs 07/28/18 07/29/18 23:57 01:05 Temperature 98.2 F 97.1 F L Pulse Rate 57 L 76 Respiratory 16 16 Rate Blood Pressure 132/81 133/86 O2 Sat by Pulse 98 97 Oximetry Medical Decision Making - Medical Decision Making The patient was seen and evaluated history was obtained from patient and signed patient reports a history of ALLERGY to rock tomato concerned she may be having an ALLERGIC reaction except physical exam is unremarkable there is no wheezing there is no stridor Will treat with oral medications She was reevaluated after receiving oral medications. She continues to be symptom free, she has no hives no rash no wheezing no stridor. At this time patient is stable for discharge home. Patient was provided a work note for later today. Disposition Clinical Impression: Allergic reaction Disposition: HOME SELF-CARE Instructions (If sedation given, give patient instructions): Food Allergy (ED) Is patient prescribed a controlled substance at d/c from ED?: No Referrals: Kathleen Bautista MD [Primary Care Provider] - 1-2 days
[2018-07-29] MEDS ORDERED: DEXAMETHASONE 4 MG TAB PO STA (00:14)
[2018-07-29] MEDS ORDERED: FAMOTIDINE 20 MG TAB PO STA (00:14)
[2018-07-29 01:10] VITALS: BP 133/86; PULSE 76; TEMP 97.1
== END 2018-07-29 01:05 | disposition home or self-care (01) ==
LOC: EC 23:52
DX: T78.40XA Allergy, unspecified, initial encounter (principal); Z79.899 Other long term (current) drug therapy; Z91.018 Allergy to other foods; Z91.040 Latex allergy status
CPT/HCPCS: 99283; J8540

== ENCOUNTER → 2018-10-10 | Outpatient (CLI) | payer BC, OTHER ==
[2018-10-10 16:02] LABS: HCG,Quantitative Serum <2.0 mIU/mL
== END | disposition home or self-care (01) ==
LOC: LABWHC1 10:35
PROVIDERS: ATTEND Nurse Practitioner Family
DX: Z13.9 Encounter for screening, unspecified (principal); N91.2 Amenorrhea, unspecified
CPT/HCPCS: 36415; 83001; 83002; 84146; 84443; 84702

== ENCOUNTER 2018-12-26 10:27 | Emergency (ER) | payer BC, OTHER ==
[2018-12-26 10:54] VITALS: RESP 18
[2018-12-26] MEDS ORDERED: GELATIN SPONGE,ABSORB (LARGE) 1 EACH SPONGE TOPICAL STA (11:37)
--- NOTE | 2018-12-26 12:23 | ED ---
Wound/Laceration HPI - General Chief Complaint: Wound/Laceration Stated Complaint: RT THUMB LACERATION Time Seen by Provider: 12/26/18 11:14 Source: patient, RN notes reviewed, old records reviewed Mode of arrival: ambulatory Limitations: no limitations - History of Present Illness Initial Comments: This 38-year-old female to the ER after sustaining thumb laceration, patient sustained a laceration to right thumb. Patient was using mandolin doing pota toes for breakfast this morning she was unable to bring this up every 2 hours and came in the ER for evaluation, patient's has had multiple injuries of the same issue, tetanus is up-to-date. No other injury noted. Laceration is very superficial., Patient was urged to come to ER from which she believes it is nothing to suture -: hour(s) Extremity Location: Right: Hand (Right thumb) Place: home Patient Tetanus UTD: Yes Context: accidental Associated Symptoms: none Treatments Prior to Arrival: bandage - Related Data Previous Rx's Medication Instructions Recorded Cephalexin [Keflex] 500 mg PO Q6HR 3 Days #12 cap 12/26/18 Allergies Allergy/AdvReac Type Severity Reaction Status Date / Time avocado Allergy Rash/Hives Verified 12/26/18 11:07 banana Allergy Rash/Hives Verified 12/26/18 11:07 cashew nut Allergy Unknown Verified 12/26/18 11:07 cucumber Allergy Unknown Verified 12/26/18 11:07 latex Allergy Rash/Hives Verified 12/26/18 11:07 rober Allergy Unknown Verified 12/26/18 11:07 Melon Allergy Unknown Verified 12/26/18 11:07 papaya Allergy Unknown Verified 12/26/18 11:07 pear Allergy Unknown Verified 12/26/18 11:07 tomato Allergy Rash/Hives Verified 12/26/18 11:07 Review of Systems ROS Statement: Those systems with pertinent positive or pertinent negative responses have been documented in the HPI. ROS Other: All systems not noted in ROS Statement are negative. Past Medical History Past Medical History: Hyperlipidemia, Seizure Disorder Additional Past Medical History / Comment(s): Migraines, last seizure 2010, UTIs. 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 He also had hepatitis C. Mother Family Medical History: Cancer, Thyroid Disorder Additional Family Medical History / Comment(s): Non hodgkins lymphoma, hypothyroid General Exam Limitations: no limitations General appearance: alert, in no apparent distress Head exam: Present: atraumatic, normocephalic, normal inspection Eye exam: Present: normal appearance, EOMI. Absent: scleral icterus, conjunctiv al injection, periorbital swelling ENT exam: Present: normal exam, mucous membranes moist Neck exam: Present: normal inspection. Absent: tenderness, meningismus, lymphadenopathy Respiratory exam: Present: normal lung sounds bilaterally. Absent: respiratory distress, wheezes, rales, rhonchi, stridor Cardiovascular Exam: Present: regular rate, normal rhythm, normal heart sounds. Absent: systolic murmur, diastolic murmur, rubs, gallop, clicks GI/Abdominal exam: Present: soft, normal bowel sounds. Absent: distended, tenderness, guarding, rebound, rigid Extremities exam: Present: normal inspection, full ROM, normal capillary refill. Absent: tenderness, pedal edema, joint swelling, calf tenderness Right Hand L/R Front: 1 - laceration (Superficial), abrasion Neuro motor exam: Present: wrist extension intact, thumb opposition intact, thumb IP flexion intact, thumb adduction intact, fingers 2-5 abduction intact Neurosensory exam: Present: radial nerve intact, ulnar nerve intact, median nerve intact, other (Laceration is about 1-2 mm depth, 2 cm by half centimeter in length) Vascular: Present: normal capillary refill Back exam: Present: normal inspection Neurological exam: Present: alert, oriented X3, CN II-XII intact Psychiatric exam: Present: normal affect, normal mood Skin exam: Present: warm, dry, intact, normal color. Absent: rash Course Vital Signs 12/26/18 10:49 Temperature 98.3 F Pulse Rate 54 L Respiratory 18 Rate Blood Pressure 100/52 - Reevaluation(s) Reevaluation #1: 12/26/18 12:20 Medical records reviewed Reevaluation #2: 12/26/18 12:20 Bandage is placed, no bleeding Procedures - Laceration Laceration #1 Consent Obtained: verbal consent Indication: laceration, other (Superficial abrasion, is been sliced off top of right thumb) Size (cm): 2 Description: flap (Small) Depth: simple, single layer Pre-repair: irrigated extensively, extensive debridement (debrided the flap) Size of Sutures: other (gelfoam) Patient Tolerated Procedure: well Medical Decision Making - Medical Decision Making 38 female with skin flap abrasion/laceration to right thumb. Wound is to provided Gelfoam is placed for hemostasis and patient is discharged home Disposition Clinical Impression: Laceration, Abrasion, Flap laceration of skin Disposition: HOME SELF-CARE Condition: Good Instructions (If sedation given, give patient instructions): Acute Wound Care (ED), Abrasion (ED) Prescriptions: Cephalexin [Keflex] 500 mg PO Q6HR 3 Days #12 cap Is patient prescribed a controlled substance at d/c from ED?: No Referrals: None,Stated [Primary Care Provider] - 1-2 days
[2018-12-26 12:49] VITALS: BP 103/68; PULSE 77; TEMP 97.6
== END 2018-12-26 12:49 | disposition home or self-care (01) ==
LOC: EC 10:27
DX: S61.011A Laceration without foreign body of right thumb without damage to nail, initial encounter (principal); Z91.018 Allergy to other foods; Z91.040 Latex allergy status; W26.8XXA Contact with other sharp object(s), not elsewhere classified, initial encounter; Y93.G9 Activity, other involving cooking and grilling; Y92.009 Unspecified place in unspecified non-institutional (private) residence as the place of occurrence of the external cause
CPT/HCPCS: 99283

== ENCOUNTER → 2019-09-25 | Outpatient (CLI) | payer BC, OTHER ==
--- NOTE | 2019-09-26 07:23 | US ---
EXAMINATION TYPE: US transvaginal DATE OF EXAM: 09/25/2019 COMPARISON: NONE CLINICAL HISTORY: N92.1 N94.6 Dysmenorrhea, Painful Menstruation. TECHNIQUE: . Transabdominal sonographic images of the pelvis were acquired. Transvaginal sonographi c images were medically necessary to better assess the following anatomy: Date of LMP: 09/23/19 EXAM MEASUREMENTS: Uterus: 10.1 x 5.7 x 3.6 cm Endometrial Stripe: 0.7 cm Right Ovary: Obscured by overlying bowel gas Left Ovary: Obscured by overlying bowel gas Patient of large body habitus. 1. Uterus: Anteverted wnl 2. Endometrium: wnl 3. Right Ovary: Obscured by overlying bowel gas. 4. Left Ovary: Obscured by overlying bowel gas. 5. Bilateral Adnexa: wnl 6. Posterior cul-de-sac: wnl IMPRESSION: Exam is limited.
== END | disposition home or self-care (01) ==
LOC: RADUSWWP 16:06
PROVIDERS: ATTEND Family Medicine
DX: N94.6 Dysmenorrhea, unspecified (principal); N92.1 Excessive and frequent menstruation with irregular cycle
CPT/HCPCS: 76830

== ENCOUNTER 2019-12-07 20:04 | Emergency (ER) | payer BC, OTHER ==
[2019-12-07] MEDS ORDERED: methylPREDNISolone SOD SUCCI 125 MG/2 ML VIAL IV STA (20:42)
[2019-12-07] MEDS ORDERED: FAMOTIDINE 20 MG/2 ML VIAL IV STA (20:43)
[2019-12-07] MEDS ORDERED: diphenhydrAMINE 50 MG/ML 1 ML VIAL IVP STA (20:43)
[2019-12-07] MEDS ORDERED: diphenhydrAMINE 50 MG/ML 1 ML VIAL IM STA (21:07)
[2019-12-07] MEDS ORDERED: methylPREDNISolone SOD SUCCI 125 MG/2 ML VIAL IM ONE (21:07)
[2019-12-07] MEDS ORDERED: FAMOTIDINE 20 MG TAB PO STA (21:08)
--- NOTE | 2019-12-07 22:00 | ED ---
General Adult HPI - General Chief complaint: Allergic Reaction Stated complaint: Alleric Reaction Time Seen by Provider: 12/07/19 20:38 Source: patient, RN notes reviewed Mode of arrival: ambulatory - History of Present Illness Initial comments: 39-year-old female with a past medical history of hyperlipidemia, migraines, UTIs presents to the emergency room for chief complaint of ALLERGIC reaction. Patient reports that after dinner tonight she started to feel like her throat was scratchy and she started to become short of breath. States she felt she was having ALLERGIC reaction. Pelvic her throat was swelling. Patient did not take any Benadryl. Patient presented to the emergency room. On presentation patient actually feels better but still does have some hoarseness of her voice. Patient did have egg plant Parmesan which she states could have caused her reaction. She denies chest pain. Denies fevers.Patient has no other complaints at this time including chest pain, abdominal pain, nausea or vomiting, headache, or visual changes. - Related Data Previous Rx's Medication Instructions Recorded Cephalexin [Keflex] 500 mg PO Q6HR 3 Days #12 cap 12/26/18 Allergies Allergy/AdvReac Type Severity Reaction Status Date / Time avocado Allergy Rash/Hives Verified 12/07/19 20:09 banana Allergy Rash/Hives Verified 12/07/19 20:09 cashew nut Allergy Unknown Verified 12/07/19 20:09 cucumber Allergy Unknown Verified 12/07/19 20:09 latex Allergy Rash/Hives Verified 12/07/19 20:09 rober Allergy Unknown Verified 12/07/19 20:09 Melon Allergy Unknown Verified 12/07/19 20:09 papaya Allergy Unknown Verified 12/07/19 20:09 pear Allergy Unknown Verified 12/07/19 20:09 tomato Allergy Rash/Hives Verified 12/07/19 20:09 Review of Systems ROS Statement: Those systems with pertinent positive or pertinent negative responses have been documented in the HPI. ROS Other: All systems not noted in ROS Statement are negative. Past Medical History Past Medical History: Hyperlipidemia, Seizure Disorder Additional Past Medical History / Comment(s): Migraines, last seizure 2010, UTIs. 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 He also had hepatitis C. Mother Family Medical History: Cancer, Thyroid Disorder Additional Family Medical History / Comment(s): Non hodgkins lymphoma, hypothyroid General Exam General appearance: alert, in no apparent distress Head exam: Present: atraumatic, normocephalic, normal inspection Eye exam: Present: normal appearance ENT exam: Present: normal exam, normal oropharynx (No angioedema, no swelling of the lips tongue or throat. Oropharynx is patent.), mucous membranes moist, TM's normal bilaterally, normal external ear exam Neck exam: Present: normal inspection, full ROM. Absent: tenderness, meningismus, lymphadenopathy Respiratory exam: Present: normal lung sounds bilaterally. Absent: respiratory distress, wheezes, rales, rhonchi, stridor Cardiovascular Exam: Present: regular rate, normal rhythm, normal heart sounds. Absent: systolic murmur, diastolic murmur, rubs, gallop, clicks GI/Abdominal exam: Present: soft, normal bowel sounds. Absent: distended, tenderness, guarding, rebound, rigid Neurological exam: Present: alert Course Vital Signs 12/07/19 20:07 Temperature 98.1 F Pulse Rate 74 Respiratory 18 Rate Blood Pressure 118/72 O2 Sat by Pulse 100 Oximetry Medical Decision Making - Medical Decision Making Patient was given IM site Medrol, Benadryl, and oral Pepcid. After reevaluation she had significant improvement in symptoms. No longer feels hoarse. States her voice is back to normal. No swelling of the lips. Patient had eggplant Parmesan which she may be ALLERGIC to. Patient will be discharged home. I discussed her to return parameters which she is agreeable to. Disposition Clinical Impression: Allergic reaction Disposition: HOME SELF-CARE Condition: Good Instructions (If sedation given, give patient instructions): General Allergic Reaction (ED) Additional Instructions: Please take Benadryl as needed. If you have any swelling of your lips tongue or throat return to the emergency room immediately. Is patient prescribed a controlled substance at d/c from ED?: No Referrals: Sheila Menchaca MD [Primary Care Provider] - 1-2 days Time of Disposition: 22:30
[2019-12-08 00:47] VITALS: BP 135/85; PULSE 68; RESP 16; TEMP 98.7
== END 2019-12-07 22:38 | disposition home or self-care (01) ==
LOC: EC 20:04
DX: T78.1XXA Other adverse food reactions, not elsewhere classified, initial encounter (principal); Z91.018 Allergy to other foods; Z91.040 Latex allergy status
CPT/HCPCS: 99284; 96372 ×2; J1200; J2930

== ENCOUNTER 2020-05-18 15:28 | Emergency (ER) | payer BC, OTHER ==
[2020-05-18 15:35] VITALS: PULSE 62; TEMP 97.8
--- NOTE | 2020-05-18 15:48 | ED ---
Lower Extremity Injury HPI - General Source: patient, RN notes reviewed Mode of arrival: ambulatory Limitations: no limitations <Kiko Carr - Last Filed: 05/18/20 16:24> <Alicia Westfall - Last Filed: 05/20/20 13:39> - General Chief Complaint: Extremity Injury, Lower Stated Complaint: Ankle injury Time Seen by Provider: 05/18/20 15:36 - History of Present Illness Initial Comments: Patient is a 39-year-old female that presents to emergency department complaining of right ankle pain. She noted that she was walking around the grocery store getting groceries when she bent over to labs some [place] stood back up and felt an uncomfortable sensation in her right ankle. She decided come to the ER to get an evaluation to rule out breaks. She noted that she can walk on it minimal to moderate pain. She did take 8-10 steps in the room while being observed. She noted the pain is tolerable and did not want any pain medication at this time. She denied any decreased range of motion decreased strength increase in weakness numbness or tingling chest pain first breath headache nausea vomiting diarrhea constipation fever fatigue chills (Kiko Carr) - Related Data Previous Rx's Medication Instructions Recorded Cephalexin [Keflex] 500 mg PO Q6HR 3 Days #12 cap 12/26/18 Allergies Allergy/AdvReac Type Severity Reaction Status Date / Time avocado Allergy Rash/Hives Verified 05/18/20 15:34 banana Allergy Rash/Hives Verified 05/18/20 15:34 cashew nut Allergy Unknown Verified 05/18/20 15:34 cucumber Allergy Unknown Verified 05/18/20 15:34 latex Allergy Rash/Hives Verified 05/18/20 15:34 rober Allergy Unknown Verified 05/18/20 15:34 Melon Allergy Unknown Verified 05/18/20 15:34 papaya Allergy Unknown Verified 05/18/20 15:34 pear Allergy Unknown Verified 05/18/20 15:34 tomato Allergy Rash/Hives Verified 05/18/20 15:34 Review of Systems ROS Other: All systems not noted in ROS Statement are negative. <Kiko Carr - Last Filed: 05/18/20 16:24> ROS Other: All systems not noted in ROS Statement are negative. <Alicia Westfall - Last Filed: 05/20/20 13:39> ROS Statement: Those systems with pertinent positive or pertinent negative responses have been documented in the HPI. Past Medical History Past Medical History: Hyperlipidemia, Seizure Disorder Additional Past Medical History / Comment(s): Migraines, last seizure 2010, UTIs. 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 He also had hepatitis C. Mother Family Medical History: Cancer, Thyroid Disorder Additional Family Medical History / Comment(s): Non hodgkins lymphoma, hypothyroid <Kiko Carr - Last Filed: 05/18/20 16:24> General Exam Limitations: no limitations General appearance: alert, in no apparent distress, obese Head exam: Present: atraumatic, normocephalic, normal inspection Eye exam: Present: normal appearance, PERRL, EOMI. Absent: scleral icterus, conjunctival injection, periorbital swelling Neck exam: Present: normal inspection. Absent: tenderness, meningismus, lymphadenopathy Respiratory exam: Present: normal lung sounds bilaterally. Absent: respiratory distress, wheezes, rales, rhonchi, stridor Cardiovascular Exam: Present: regular rate, normal rhythm, normal heart sounds. Absent: systolic murmur, diastolic murmur, rubs, gallop, clicks Extremities exam: Present: normal inspection (Right ankle bilaterally over the malleoli), full ROM, normal capillary refill. Absent: tenderness, pedal edema, joint swelling, calf tenderness Neurological exam: Present: alert, oriented X3, CN II-XII intact Psychiatric exam: Present: normal affect, normal mood Skin exam: Present: warm, dry, intact, normal color. Absent: rash <Kiko Carr - Last Filed: 02/28/21 16:24> Course Vital Signs 05/18/20 05/18/20 15:32 17:21 Temperature 97.8 F 97.8 F Pulse Rate 62 62 Respiratory 20 18 Rate Blood Pressure 146/76 132/76 O2 Sat by Pulse 99 99 Oximetry Medical Decision Making - Radiology Data Radiology results: report reviewed, image reviewed <Kiko Carr - Last Filed: 05/18/20 16:24> <Alicia Westfall - Last Filed: 05/20/20 13:39> - Medical Decision Making 39-year-old female complaining of right ankle pain. Complete x-ray the right ankle ordered. Pain medication was held due to patient denied wanting any. Right ankle x-ray negative. Case discussed with Dr. Westfall, decided patient could discharge home with conservative management. (Kiko Carr) I was available for consultation in the emergency department. The history and physical exam were done by the midlevel provider. I was consulted for this patients care. I reviewed the case with the midlevel provider and based on their presentation of the patient, I agree with the assessment, medical decision making and plan of care as documented. Chart was dictated using [employer] dictation software. Attempts were made to correct any dictation errors however some typographical errors may persist. Patient was seen during a national state of emergency due to the Covid-19 pandemic. (Alicia Westfall) - Radiology Data Right ankle x-ray:Calcaneal spurring no fracture. (Kiko Carr) Disposition Is patient prescribed a controlled substance at d/c from ED?: No Time of Disposition: 16:37 <Kiko Carr - Last Filed: 05/18/20 16:24> <Alicia Westfall - Last Filed: 05/20/20 13:39> Clinical Impression: Right ankle sprain Disposition: HOME SELF-CARE Condition: Stable Instructions (If sedation given, give patient instructions): Ankle Sprain (ED) Additional Instructions: Please return to the Emergency Department if symptoms worsen or any other concerns. Follow-up primary care 1-2 days. Rest ice elevate compress as needed. Take [id number] pain medication as needed for conservative management. Use as tolerated. Referrals: Nonstaff,Physician [Primary Care Provider] - 1-2 days
--- NOTE | 2020-05-18 16:22 | XR ---
EXAMINATION TYPE: XR ankle complete RT DATE OF EXAM: 05/18/2020 COMPARISON: NONE HISTORY: Ankle pain. Injury. TECHNIQUE: 3 views FINDINGS: There are plantar and Achilles calcaneal spurs. Ankle mortise is anatomic. I see no fractur e nor dislocation. Joint spaces are normal. IMPRESSION: Calcaneal spurring. No fracture.
[2020-05-18 17:23] VITALS: BP 132/76; RESP 18
== END 2020-05-18 17:22 | disposition home or self-care (01) ==
LOC: EC 15:28
DX: S93.401A Sprain of unspecified ligament of right ankle, initial encounter (principal); E78.5 Hyperlipidemia, unspecified; Y92.512 Supermarket, store or market as the place of occurrence of the external cause; Z98.51 Tubal ligation status
CPT/HCPCS: 99283

== ENCOUNTER → 2020-07-14 | Outpatient (CLI) | payer OTHER ==
[2020-07-14 13:45] VITALS: BP 135/84; PULSE 76; RESP 18; TEMP 98.4; BMI 43.4
[2020-07-14 14:59] LABS: HCT 40.3 % (34.0-46.0); HGB 13.7 gm/dL (11.4-16.0); MCH 30.2 pg (25.0-35.0); MCHC 33.9 g/dL (31.0-37.0); MCV 88.9 fL (80.0-100.0); Mean Platelet Volume 6.2; Platelet Count 308 k/uL (150-450); RBC 4.54 m/uL (3.80-5.40); RDW 12.2 % (11.5-15.5); WBC 7.2 k/uL (3.8-10.6)
--- NOTE | 2020-07-14 17:40 | P.HPBAR ---
Bariatric H&P - History & Physicial H&P Date: 07/14/20 History & Physicial: Visit/CC: initial visit Patient initial contact: Initial weight: Initial weight in pounds: Height: 5 ft 5.25 in Initial BMI: Last weight: Current weight: 119.295 kg Current weight in pounds: 263.00 Current BMI: 43.4 [place] body weight (based on NIH guidelines): 57.266 kg Excess body weight loss: The patient is a 40 year-old F who presents for Bariatric Assessment. Patient presents today for initial clinic visit. She is morbidly obese. Her BMI is 43. She's had lifetime problem with obesity. Past Medical History Past Medical History: Hyperlipidemia, Seizure Disorder Additional Past Medical History / Comment(s): Migraines, last seizure 2010, UTIs. 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 csection X3 Past Anesthesia/Blood Transfusion Reactions: No Reported Reaction, Motion Sickness Past Psychological History: ADD/ADHD, Bipolar Additional Psychological History / Comment(s): Pt resides with her mom and three children. She is independent. Smoking Status: Former smoker Past Alcohol Use History: Rare Additional Past Alcohol Use History / Comment(s): Pt started smoking in 1991 and quit in 2014. Past Drug Use History: None Reported - Past Family History Father Family Medical History: Congestive Heart Failure (CHF), Liver Disease, Myocardial Infarction ([place]) Additional Family Medical History / Comment(s): Father of CHF at the age of 57yrs. He also had hepatitis C. Mother Family Medical History: Cancer, Thyroid Disorder Additional Family Medical History / Comment(s): Non hodgkins lymphoma, hypothyroid Surgical - Exam Vital Signs Temp Pulse Resp BP 98.4 F 76 18 135/84 07/14/20 13:33 07/14/20 13:33 07/14/20 13:33 07/14/20 13:33 - General well developed, well nourished, no distress - Eyes PERRL - ENT normal pinna - Neck no masses - Respiratory normal expansion - Cardiovascular Rhythm: regular - Abdomen Abdomen: soft, non tender Results - Labs 07/14/20 14:19 Bariatric Assessment & Plan Plan: Morbid obesity. Patient was scheduled for EGD. She'll follow-up after this performed. Bariatric Checklist Checklist: Plan: Checklist: EGD: 1. Hiatal hernia: 2. H. Pylori: HgbA1c: Vitamin D: Smoking: Never smoker Primary care physician referral: Dr. Simon ([place]) Psychiatry clearance: Cardiology clearance: Sleep study: Diet journal: VTE risk score: VTE risk level: Rehab needs at discharge:
[2020-07-14 19:39] LABS: African American GFR (CKD) 106.9 (60.0-200.0); Albumin 4.6 g/dL (3.80-4.90); Albumin/Globulin Ratio 2.42 (1.60-3.17); Calcium 9.4 mg/dL (8.7-10.3); Globulin 1.9 g/dL (1.6-3.3); Non-African American GFR(CKD) 92.2 (60.0-200.0); Potassium 4.4 mmol/L (3.5-5.5); Total Bilirubin 0.3 mg/dL (0.3-1.2); Total Protein 6.5 g/dL (6.2-8.2)
[2020-07-14 19:49] LABS: Folate, Serum 18.9 ng/mL
== END | disposition home or self-care (01) ==
LOC: BARWHC3 13:10
PROVIDERS: ATTEND Surgery
DX: E66.01 Morbid (severe) obesity due to excess calories (principal); E55.9 Vitamin D deficiency, unspecified; E88.81 Metabolic syndrome and other insulin resistance; Z68.41 Body mass index [BMI] 40.0-44.9, adult
CPT/HCPCS: 84425; 80053; 82607; 82746; 85027; 82306; 83036; 93005; 36415; G0463; 99211

== ENCOUNTER 2020-08-09 11:41 | Emergency (ER) | payer OTHER ==
[2020-08-09 11:46] VITALS: BP 126/88; PULSE 60; RESP 18; TEMP 97.5
[2020-08-09] MEDS ORDERED: DOXYCYCLINE 100 MG CAP PO STA (11:52)
--- NOTE | 2020-08-09 11:54 | ED ---
Skin/Abscess/FB HPI - General Chief complaint: Skin/Abscess/Foreign Body Stated complaint: Insect Bite Time Seen by Provider: 08/09/20 11:46 Source: patient Mode of arrival: ambulatory Limitations: no limitations - History of Present Illness Initial comments: 40 year-old female patient presents to the emergency department for evaluation after finding a tick on the back of her neck today. States that she did have a tick on the right thigh last night which she removed. 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 She is not really sure of the timing. Denies any rash, fever, or chills. Denies any itching to the area. Denies any other concerning symptoms. - Related Data Home Medications Medication Instructions Recorded Confirmed No Known Home Medications 07/14/20 07/14/20 Allergies Allergy/AdvReac Type Severity Reaction Status Date / Time avocado Allergy Rash/Hives Verified 08/09/20 11:46 banana Allergy Rash/Hives Verified 08/09/20 11:46 cashew nut Allergy Unknown Verified 08/09/20 11:46 cucumber Allergy Unknown Verified 08/09/20 11:46 latex Allergy Rash/Hives Verified 08/09/20 11:46 rober Allergy Unknown Verified 08/09/20 11:46 Melon Allergy Unknown Verified 08/09/20 11:46 papaya Allergy Unknown Verified 08/09/20 11:46 pear Allergy Unknown Verified 08/09/20 11:46 tomato Allergy Rash/Hives Verified 08/09/20 11:46 Review of Systems ROS Statement: Those systems with pertinent positive or pertinent negative responses have been documented in the HPI. ROS Other: All systems not noted in ROS Statement are negative. Past Medical History Past Medical History: Hyperlipidemia, Seizure Disorder Additional Past Medical History / Comment(s): Migraines, last seizure 2010, UTIs. 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 csection X3 Past Anesthesia/Blood Transfusion Reactions: No Reported Reaction, Motion Sickness Past Psychological History: ADD/ADHD, Bipolar Smoking Status: Former smoker Past Alcohol Use History: Rare Past Drug Use History: None Reported - Past Family History Father Family Medical History: Congestive Heart Failure (CHF), Liver Disease, Myocardial Infarction ([place]) Additional Family Medical History / Comment(s): Father of CHF at the age of 57yrs. He also had hepatitis C. Mother Family Medical History: Cancer, Thyroid Disorder Additional Family Medical History / Comment(s): Non hodgkins lymphoma, hypothyroid General Exam Limitations: no limitations General appearance: alert, in no apparent distress Respiratory exam: Present: normal lung sounds bilaterally. Absent: respiratory distress, wheezes, rales, rhonchi, stridor Cardiovascular Exam: Present: regular rate, normal rhythm, normal heart sounds. Absent: systolic murmur, diastolic murmur, rubs, gallop, clicks Extremities exam: Present: full ROM, normal capillary refill, other (Tiny puncture to right thigh, no surrounding erythema. Tiny puncture to the posterior neck. No surrounding erythema. ). Absent: normal inspection, tenderness, pedal edema, joint swelling, calf tenderness Neurological exam: Present: alert, oriented X3, CN II-XII intact Psychiatric exam: Present: normal affect, normal mood Skin exam: Present: warm, dry, intact, normal color. Absent: rash Course Vital Signs 08/09/20 11:43 Temperature 97.5 F L Pulse Rate 60 Respiratory 18 Rate Blood Pressure 126/88 O2 Sat by Pulse 99 Oximetry Medical Decision Making - Medical Decision Making 40-year-old female patient presents to the emergency department today for evaluation of tick bite posterior neck. She also had one to the right thigh yesterday. Physical examination is unremarkable. No rash. She is afebrile normal vital signs. She is unsure exactly how long the tick was in place we will treat with prophylactic dose of doxycycline. She'll be discharged. The primary care physician for recheck in 1-2 days. Return parameters were discussed in detail. She verbalizes understanding and agrees with this plan. My attending is Dr. Park. Disposition Clinical Impression: Tick bite Disposition: HOME SELF-CARE Condition: Good Instructions (If sedation given, give patient instructions): Tick Bite (ED) Additional Instructions: Follow up with your primary care physician for recheck in 1-2 days. Monitor bite sites for development of rash. Return for any new, worsening, or concerning symptoms. Is patient prescribed a controlled substance at d/c from ED?: No Referrals: Brandie Simon MD [Primary Care Provider] - 1-2 days Time of Disposition: 11:54
== END 2020-08-09 12:25 | disposition home or self-care (01) ==
LOC: EC 11:41
DX: S11.23XA Puncture wound without foreign body of pharynx and cervical esophagus, initial encounter (principal); S71.131A Puncture wound without foreign body, right thigh, initial encounter; E78.5 Hyperlipidemia, unspecified; F31.9 Bipolar disorder, unspecified; F90.9 Attention-deficit hyperactivity disorder, unspecified type; Z87.891 Personal history of nicotine dependence; W57.XXXA Bitten or stung by nonvenomous insect and other nonvenomous arthropods, initial encounter
CPT/HCPCS: 99282

== ENCOUNTER 2020-12-04 09:44 | Day surgery (SDC) | payer OTHER ==
[2020-12-01 14:37] VITALS: BMI 41.9
[~2020-12-04 09:44] MED LIST: LACTATED RINGERS 1,000 ML IV SCH
[2020-12-04] MEDS ORDERED: LIDOCAINE 1% (10MG/ML) FOR IV START INTRADERMA ONE (10:18)
[2020-12-04 10:31] VITALS: TEMP 97.5
[2020-12-04] MEDS ORDERED: LIDOCAINE 1% INJ 10MG/ML (20 ML MDV) ONE (11:19)
[2020-12-04] MEDS ORDERED: PROPOFOL 10 MG/ML 20 ML VIAL IV ONE (11:19)
--- NOTE | 2020-12-04 11:21 | P.GSHP ---
History of Present Illness H&P Date: 12/04/20 Chief Complaint: GERD, morbid obesity This is a 40-year-old female undergoing workup for sleeve gastrectomy. Her BMI is 41. She's had issues with GERD. Past Medical History Past Medical History: Hyperlipidemia, Seizure Disorder Additional Past Medical History / Comment(s): last seizure in 2010. 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 right axilla lymph node removal Past Anesthesia/Blood Transfusion Reactions: No Reported Reaction Past Psychological History: ADD/ADHD, Bipolar Additional Psychological History / Comment(s): Pt resides with her mom and three children. She is independent. Smoking Status: Former smoker Past Alcohol Use History: Rare Additional Past Alcohol Use History / Comment(s): Pt started smoking in 1991 and quit in 2014. Past Drug Use History: None Reported - Past Family History Father Family Medical History: Congestive Heart Failure (CHF), Liver Disease, Myocardial Infarction ([place]) Additional Family Medical History / Comment(s): Father of CHF at the age of 57yrs. He also had hepatitis C. Mother Family Medical History: Cancer, Thyroid Disorder Additional Family Medical History / Comment(s): Non hodgkins lymphoma, hypothyroid Medications and Allergies Home Medications Medication Instructions Recorded Confirmed Type No Known Home Medications 07/14/20 12/04/20 History Allergies Allergy/AdvReac Type Severity Reaction Status Date / Time avocado Allergy Rash/Hives Verified 12/04/20 10:05 banana Allergy Rash/Hives Verified 12/04/20 10:05 cashew nut Allergy Unknown Verified 12/04/20 10:05 cucumber Allergy Unknown Verified 12/04/20 10:05 latex Allergy Rash/Hives Verified 12/04/20 10:05 rober Allergy Unknown Verified 12/04/20 10:05 Melon Allergy Unknown Verified 12/04/20 10:05 papaya Allergy Unknown Verified 12/04/20 10:05 pear Allergy Unknown Verified 12/04/20 10:05 tomato Allergy Rash/Hives Verified 12/04/20 10:05 Surgical - Exam Vital Signs Temp Pulse Resp BP Pulse Ox 97.5 F L 50 L 17 151/90 99 12/04/20 10:07 12/04/20 10:07 12/04/20 10:07 12/04/20 10:07 12/04/20 10:07 - General well developed, well nourished, no distress - Eyes PERRL - ENT normal pinna - Neck no masses - Respiratory normal expansion - Cardiovascular Rhythm: regular - Abdomen Abdomen: soft, non tender Assessment and Plan Assessment: GERD, morbid obesity. We'll perform EGD.
--- NOTE | 2020-12-04 11:29 | P.OP ---
Date of Procedure: 12/04/20 Preoperative Diagnosis: GERD Morbid obesity Postoperative Diagnosis: Antral gastritis Procedure(s) Performed: EGD Anesthesia: MAC Surgeon: Amando Medina Pathology: other (Antrum) Condition: stable Disposition: PACU Description of Procedure: The patient's placed on the endoscopy table in the lateral position. She received IV sedation. The gastroscope placed oropharynx passed in the esophagus and stomach. Scope was then placed through the pylorus. The first and second portion of the duodenum appeared normal. Scope was then brought back the antrum this time inflamed. A biopsies performed. The scope was unretroflexed and remainder the stomach appeared normal. The GE junction was at 47 is. The distal esophagus appeared normal. Proximal esophagus appeared normal. Scope was withdrawn for patient.
[2020-12-04 11:33] VITALS: PULSE 52
[2020-12-04 11:48] VITALS: BP 101/58; RESP 18
== END 2020-12-04 12:00 | disposition home or self-care (01) ==
LOC: ORWHC2ENDO 09:44
PROVIDERS: ATTEND Surgery
DX: K29.50 Unspecified chronic gastritis without bleeding (principal); E78.5 Hyperlipidemia, unspecified; G40.909 Epilepsy, unspecified, not intractable, without status epilepticus; K21.9 Gastro-esophageal reflux disease without esophagitis; G47.33 Obstructive sleep apnea (adult) (pediatric); G43.909 Migraine, unspecified, not intractable, without status migrainosus; F90.9 Attention-deficit hyperactivity disorder, unspecified type; E66.01 Morbid (severe) obesity due to excess calories; Z68.41 Body mass index [BMI] 40.0-44.9, adult; Z82.49 Family history of ischemic heart disease and other diseases of the circulatory system; Z83.49 Family history of other endocrine, nutritional and metabolic diseases; Z87.891 Personal history of nicotine dependence; Z91.040 Latex allergy status
CPT/HCPCS: 43239; 81025; 88305; J2001; J2704

== ENCOUNTER → 2020-12-12 | Outpatient (CLI) | payer OTHER | END | disposition home or self-care (01) | LOC: LABWHC1 12:42 | PROVIDERS: ATTEND Internal Medicine | DX: L50.9 Urticaria, unspecified (principal) | CPT/HCPCS: 36415; 86003 ==

== ENCOUNTER → 2020-12-15 | Outpatient (CLI) | payer OTHER ==
[2020-12-15 14:44] VITALS: BP 105/76; PULSE 76; TEMP 98.1; BMI 42.7
--- NOTE | 2020-12-15 15:12 | P.HPBAR ---
Bariatric H&P - History & Physicial H&P Date: 12/15/20 History & Physicial: Visit/CC: presrugical visit Patient initial contact: Initial weight: Initial weight in pounds: Height: 5 ft 5.25 in Initial BMI: Last weight: Current weight: 117.48 kg Current weight in pounds: 259.00 Current BMI: 42.7 [place] body weight (based on NIH guidelines): 57.266 kg Excess body weight loss: The patient is a 40 year-old F who presents for Bariatric Assessment. Patient resents today for bariatric presurgical consultation. She has an excellent understanding of sleeve gastrectomy. Past Medical History Past Medical History: Hyperlipidemia, Seizure Disorder Additional Past Medical History / Comment(s): last seizure in 2010. 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 right axilla lymph node removal Past Anesthesia/Blood Transfusion Reactions: No Reported Reaction Past Psychological History: ADD/ADHD, Bipolar Additional Psychological History / Comment(s): Pt resides with her mom and three children. She is independent. Smoking Status: Former smoker Past Alcohol Use History: Rare Additional Past Alcohol Use History / Comment(s): Pt started smoking in 1991 and quit in 2014. Past Drug Use History: None Reported - Past Family History Father Family Medical History: Congestive Heart Failure (CHF), Liver Disease, Myocardial Infarction ([place]) Additional Family Medical History / Comment(s): Father of CHF at the age of 57yrs. He also had hepatitis C. Mother Family Medical History: Cancer, Thyroid Disorder Additional Family Medical History / Comment(s): Non hodgkins lymphoma, hypothyroid Surgical - Exam Vital Signs Temp Pulse BP 98.1 F 76 105/76 12/15/20 14:42 12/15/20 14:42 12/15/20 14:42 - General well developed, well nourished, no distress - Eyes PERRL - ENT normal pinna - Neck no masses - Respiratory normal expansion - Cardiovascular Rhythm: regular - Abdomen Abdomen: soft, non tender Bariatric Assessment & Plan Plan: Morbid obesity. Patient is an excellent understanding significant history. She'll be scheduled for EGD. Bariatric Checklist Checklist: Plan: Checklist: EGD: 1. Hiatal hernia: 2. H. Pylori: HgbA1c: Vitamin D: Smoking: Never smoker Primary care physician referral: Dr. Simon ([place]) Psychiatry clearance: Cardiology clearance: Sleep study: Diet journal: VTE risk score: VTE risk level: Rehab needs at discharge:
== END ==
LOC: BARWHC3 14:04
PROVIDERS: ATTEND Surgery
DX: E66.01 Morbid (severe) obesity due to excess calories (principal); Z01.818 Encounter for other preprocedural examination; E78.5 Hyperlipidemia, unspecified; F90.9 Attention-deficit hyperactivity disorder, unspecified type; F31.9 Bipolar disorder, unspecified; G43.909 Migraine, unspecified, not intractable, without status migrainosus; G40.909 Epilepsy, unspecified, not intractable, without status epilepticus; Z68.41 Body mass index [BMI] 40.0-44.9, adult; Z87.891 Personal history of nicotine dependence; Z91.018 Allergy to other foods; Z91.040 Latex allergy status
CPT/HCPCS: 99211

== ENCOUNTER → 2021-01-05 | Outpatient (CLI) | payer OTHER ==
[2021-01-05 15:01] VITALS: BMI 47.7
== END ==
LOC: BARWHC3 08:41
PROVIDERS: ATTEND Surgery
DX: E66.01 Morbid (severe) obesity due to excess calories (principal); Z71.3 Dietary counseling and surveillance; Z68.42 Body mass index [BMI] 45.0-49.9, adult; Z91.018 Allergy to other foods; Z91.040 Latex allergy status
CPT/HCPCS: 97804

== ENCOUNTER → 2021-02-17 | Outpatient (CLI) | payer OTHER ==
[2021-02-17 15:04] VITALS: BP 123/84; PULSE 55; TEMP 97.9; BMI 41.9
== END ==
LOC: BARWHC3 14:22
PROVIDERS: ATTEND Surgery
DX: E66.01 Morbid (severe) obesity due to excess calories (principal)
CPT/HCPCS: 99211

== ENCOUNTER 2021-09-07 15:47 | Observation (INO) | payer OTHER ==
[2021-09-07] MEDS ORDERED: ACETAMINOPHEN TAB 500 MG TAB PO STA (15:53)
[2021-09-07] MEDS ORDERED: SODIUM CHLORIDE 0.9% 500 ML 500 ML IV STA (15:56)
[2021-09-07] MEDS ORDERED: NITROGLYCERIN OINT 1 INCH/GM PACKET TOPICAL STA (15:56)
[2021-09-07] MEDS ORDERED: ASPIRIN 81 MG PO STA (15:56)
--- NOTE | 2021-09-07 16:07 | ED ---
General Adult HPI - General Chief complaint: Chest Pain Stated complaint: Chest pain Source: patient, EMS, RN notes reviewed, old records reviewed Mode of arrival: EMS Limitations: no limitations - History of Present Illness Initial comments: This is a 41-year-old female with past medical history significant for high cholesterol and migraine headaches. Patient states she has a strong family history of heart disease. Patient states about an hour prior to arrival she she started having crushing left-sided chest pain that radiated to her jaw. Patient states she's never experienced this before. Patient states it lasts about a half hour to she was given an aspirin and nitroglycerin by EMS. Patient denied any shortness of breath or diaphoretic episode. Patient states she was mildly nauseated. Patient does complain of headache and she states it was worsened by nitroglycerin. Patient denies any abdominal pain. Patient denies any vomiting or diarrhea. Patient denies any swelling to her legs or calf tenderness. - Related Data Home Medications Medication Instructions Recorded Confirmed No Known Home Medications 07/14/20 12/15/20 Allergies Allergy/AdvReac Type Severity Reaction Status Date / Time avocado Allergy Rash/Hives Verified 09/07/21 15:53 banana Allergy Rash/Hives Verified 09/07/21 15:53 cashew nut Allergy Unknown Verified 09/07/21 15:53 cucumber Allergy Unknown Verified 09/07/21 15:53 latex Allergy Rash/Hives Verified 09/07/21 15:53 rober Allergy Unknown Verified 09/07/21 15:53 Melon Allergy Unknown Verified 09/07/21 15:53 papaya Allergy Unknown Verified 09/07/21 15:53 pear Allergy Unknown Verified 09/07/21 15:53 tomato Allergy Rash/Hives Verified 09/07/21 15:53 Review of Systems ROS Statement: Those systems with pertinent positive or pertinent negative responses have been documented in the HPI. ROS Other: All systems not noted in ROS Statement are negative. Past Medical History Past Medical History: Hyperlipidemia, Seizure Disorder Additional Past Medical History / Comment(s): last seizure in 2010. 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 right axilla lymph node removal Past Anesthesia/Blood Transfusion Reactions: No Reported Reaction Past Psychological History: ADD/ADHD, Bipolar Smoking Status: Former smoker Past Alcohol Use History: Rare Past Drug Use History: None Reported - Past Family History Father Family Medical History: Congestive Heart Failure (CHF), Liver Disease, Myocardial Infarction ([place]) Additional Family Medical History / Comment(s): Father of CHF at the age of 57yrs. He also had hepatitis C. Mother Family Medical History: Cancer, Thyroid Disorder Additional Family Medical History / Comment(s): Non hodgkins lymphoma, hypothyroid General Exam - General Exam Comments Initial Comments: GENERAL: Patient is well-developed and well-nourished. Patient is nontoxic and well- hydrated and is in mild distress. ENT: Neck is soft and supple. No significant lymphadenopathy is noted. Oropharynx i s clear. Moist mucous membranes. Neck has full range of motion without eliciting any pain. EYES: The sclera were anicteric and conjunctiva were pink and moist. Extraocular movements were intact and pupils were equal round and reactive to light. Eyelids were unremarkable. PULMONARY: Unlabored respirations. Good breath sounds bilaterally. No audible rales rhonchi or wheezing was noted. CARDIOVASCULAR: There is a regular rate and rhythm without any murmurs gallops or rubs. ABDOMEN: Soft and nontender with normal bowel sounds. SKIN: Skin is clear with no lesions or rashes and otherwise unremarkable. NEUROLOGIC: Patient is alert and oriented x3. Cranial nerves II through XII are grossly intact. Motor and sensory are also intact. Normal speech, volume and content. Symmetrical smile. MUSCULOSKELETAL: Normal extremities with adequate strength and full range of motion. No lower extremity swelling or edema. No calf tenderness. LYMPHATICS: No significant lymphadenopathy is noted PSYCHIATRIC: Normal psychiatric evaluation. 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 Patient's EKG shows no ST segment elevation or depression. Chest x-ray shows no acute abnormality. Was no elevation in troponin however patient has significant family history and pain was improved with nitroglycerin. I spoke with some physicians agreed to admit the patient admitted the patient wrote admitting orders. I consulted cardiology - Lab Data Result diagrams: 09/07/21 16:05 09/07/21 16:05 Lab Results 09/07/21 09/07/21 09/07/21 Range/Units 16:05 16:05 16:05 WBC 5.8 (3.8-10.6) k/uL RBC 4.06 (3.80-5.40) m/uL Hgb 12.7 (11.4-16.0) gm/dL Hct 36.4 (34.0-46.0) % MCV 89.6 (80.0-100.0) fL MCH 31.3 (25.0-35.0) pg MCHC 34.9 (31.0-37.0) g/dL RDW 13.1 (11.5-15.5) % Plt Count 234 (150-450) k/uL MPV 6.2 Neutrophils % (Manual) 41 % Lymphocytes % (Manual) 47 % Monocytes % (Manual) 7 % Eosinophils % (Manual) 4 % Basophils % (Manual) 1 % Neutrophils # (Manual) 2.38 (1.3-7.7) k/uL Lymphocytes # (Manual) 2.73 (1.0-4.8) k/uL Monocytes # (Manual) 0.41 (0-1.0) k/uL Eosinophils # (Manual) 0.23 (0-0.7) k/uL Basophils # (Manual) 0.06 (0-0.2) k/uL Nucleated RBCs 0 (0-0) /100 WBC Manual Slide Review Performed RBC Morphology Normal PT 10.1 (9.0-12.0) sec INR 0.9 (<1.2) APTT 24.6 (22.0-30.0) sec Sodium 136 L (137-145) mmol/L Potassium 4.4 (3.5-5.1) mmol/L Chloride 105 (98-107) mmol/L Carbon Dioxide 24 (22-30) mmol/L Anion Gap 7 mmol/L BUN 15 (7-17) mg/dL Creatinine 0.69 (0.52-1.04) mg/dL Est GFR (CKD-EPI)AfAm >90 (>60 ml/min/1.73 sqM) Est GFR (CKD-EPI)NonAf >90 (>60 ml/min/1.73 sqM) Glucose 92 (74-99) mg/dL Calcium 8.9 (8.4-10.2) mg/dL Magnesium 2.1 (1.6-2.3) mg/dL Total Bilirubin 0.4 (0.2-1.3) mg/dL AST 40 H (14-36) U/L ALT 64 H (4-34) U/L Alkaline Phosphatase 80 (38-126) U/L Troponin I (0.000-0.034) ng/mL Total Protein 7.4 (6.3-8.2) g/dL Albumin 4.5 (3.5-5.0) g/dL 09/07/21 Range/Units 16:05 WBC (3.8-10.6) k/uL RBC (3.80-5.40) m/uL Hgb (11.4-16.0) gm/dL Hct (34.0-46.0) % MCV (80.0-100.0) fL MCH (25.0-35.0) pg MCHC (31.0-37.0) g/dL RDW (11.5-15.5) % Plt Count (150-450) k/uL MPV Neutrophils % (Manual) % Lymphocytes % (Manual) % Monocytes % (Manual) % Eosinophils % (Manual) % Basophils % (Manual) % Neutrophils # (Manual) (1.3-7.7) k/uL Lymphocytes # (Manual) (1.0-4.8) k/uL Monocytes # (Manual) (0-1.0) k/uL Eosinophils # (Manual) (0-0.7) k/uL Basophils # (Manual) (0-0.2) k/uL Nucleated RBCs (0-0) /100 WBC Manual Slide Review RBC Morphology PT (9.0-12.0) sec INR (<1.2) APTT (22.0-30.0) sec Sodium (137-145) mmol/L Potassium (3.5-5.1) mmol/L Chloride (98-107) mmol/L Carbon Dioxide (22-30) mmol/L Anion Gap mmol/L BUN (7-17) mg/dL Creatinine (0.52-1.04) mg/dL Est GFR (CKD-EPI)AfAm (>60 ml/min/1.73 sqM) Est GFR (CKD-EPI)NonAf (>60 ml/min/1.73 sqM) Glucose (74-99) mg/dL Calcium (8.4-10.2) mg/dL Magnesium (1.6-2.3) mg/dL Total Bilirubin (0.2-1.3) mg/dL AST (14-36) U/L ALT (4-34) U/L Alkaline Phosphatase (38-126) U/L Troponin I <0.012 (0.000-0.034) ng/mL Total Protein (6.3-8.2) g/dL Albumin (3.5-5.0) g/dL Disposition Clinical Impression: Chest pain Disposition: ADMITTED IP TO THIS HOSP Referrals: Brandie Simon MD [Primary Care Provider] - 1-2 days Time of Disposition: 18:18
[2021-09-07] MEDS ORDERED: ONDANSETRON 4 MG/2 ML VIAL IVP STA (16:08)
[2021-09-07 16:16] LABS: HCT 36.4 % (34.0-46.0); HGB 12.7 gm/dL (11.4-16.0); MCH 31.3 pg (25.0-35.0); MCHC 34.9 g/dL (31.0-37.0); MCV 89.6 fL (80.0-100.0); Mean Platelet Volume 6.2; Platelet Count 234 k/uL (150-450); RBC 4.06 m/uL (3.80-5.40); RDW 13.1 % (11.5-15.5); WBC 5.8 k/uL (3.8-10.6)
[2021-09-07 16:29] LABS: INR 0.9 (<1.2); Partial Thromboplastin Time 24.6 sec (22.0-30.0); Prothrombin Time 10.1 sec (9.0-12.0)
[2021-09-07 16:30] LABS: ALT 64 U/L (4-34); AST 40 U/L (14-36); African American GFR (CKD) >90 (>60 ml/min/1.73 sqM); Albumin 4.5 g/dL (3.5-5.0); Alkaline Phosphatase 80 U/L (38-126); Anion Gap 7 mmol/L; Blood Urea Nitrogen 15 mg/dL (7-17); Calcium 8.9 mg/dL (8.4-10.2); Carbon Dioxide 24 mmol/L (22-30); Chloride 105 mmol/L (98-107); Glucose 92 mg/dL (74-99); Magnesium 2.1 mg/dL (1.6-2.3); Non-African American GFR(CKD) >90 (>60 ml/min/1.73 sqM); Potassium 4.4 mmol/L (3.5-5.1); Sodium 136 mmol/L (137-145); Total Bilirubin 0.4 mg/dL (0.2-1.3); Total Protein 7.4 g/dL (6.3-8.2)
--- NOTE | 2021-09-07 16:33 | XR ---
EXAMINATION TYPE: XR chest 2V DATE OF EXAM: 09/07/2021 COMPARISON: Chest x-ray 02/24/2016 HISTORY: Chest pain TECHNIQUE: Frontal and lateral views of the chest are obtained. FINDINGS: There is no focal air space opacity, pleural effusion, or pneumothorax seen. The cardiac silhouette size is within normal limits. There are overlying cardiac leads, artifacts. The osseous s tructures are intact. IMPRESSION: No acute cardiopulmonary process.
[2021-09-07 16:48] LABS: Basophils # (M) 0.06 k/uL (0-0.2); Eosinophils # (M) 0.23 k/uL (0-0.7); Lymphocytes # (M) 2.73 k/uL (1.0-4.8); Monocytes # (M) 0.41 k/uL (0-1.0); Neutrophils # (M) 2.38 k/uL (1.3-7.7); Neutrophils % (M) 41 %; Nucleated Red Blood Cells 0 /100 WBC (0-0); Total Cells Counted 100
[2021-09-07 16:51] LABS: RBC Morphology Normal
[2021-09-07] MEDS ORDERED: NALOXONE 0.4 MG/ML 1 ML VIAL IV PRN (18:10)
[2021-09-07] MEDS ORDERED: ACETAMINOPHEN TAB 325 MG TAB PO PRN (18:10)
[2021-09-07] MEDS ORDERED: NITROGLYCERIN SL TABS 0.4 MG TAB SUBLINGUAL PRN (18:18)
--- NOTE | 2021-09-07 18:26 | P.HPIM ---
History of Present Illness Chief Complaint: Chest pain This is a very pleasant 41-year-old female without significant past medical history currently not on any home medications who came for evaluation of chest pain Patient was in her usual state of health today at work. She was lifting some canisters with water. She started experiencing left-sided pressure-like chest pain radiating to her left shoulder and her jaw. She was diaphoretic. She did not have shortness of breath. She sat but the pain continued and EMS was called. EKG showed her baseline sinus bradycardia without acute STT changes. On route to the ER she was given aspirin and nitroglycerin upon which her pain resolved. Currently she is chest pain free and reports no discomfort. She denies any headache or any dizziness shortness of breath. Denies any abdominal pain or radiation of the pain to her back. Patient currently does not take any aspirin or any other medications. Denies smoking. She states that she has history of premature coronary artery disease in her family. Her father was diagnosed with first NM at age of 51 and of heart attack age 57. In emergency department first troponin was negative. EKG as mentioned above sinus bradycardia which she is known to the patient from before. She never had any cardiac evaluation for this. Chest x-ray without acute changes. During my interview patient is stable and denying any discomfort or chest pain. Review of Systems Negative except as mentioned in HPI Past Medical History Past Medical History: Hyperlipidemia, Seizure Disorder Additional Past Medical History / Comment(s): last seizure in 2010. 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 right axilla lymph node removal Past Anesthesia/Blood Transfusion Reactions: No Reported Reaction Past Psychological History: ADD/ADHD, Bipolar Smoking Status: Former smoker Past Alcohol Use History: Rare Past Drug Use History: None Reported - Past Family History Father Family Medical History: Congestive Heart Failure (CHF), Liver Disease, Myocardial Infarction ([place]) Additional Family Medical History / Comment(s): Father of CHF at the age of 57yrs. He also had hepatitis C. Mother Family Medical History: Cancer, Thyroid Disorder Additional Family Medical History / Comment(s): Non hodgkins lymphoma, hypothyroid Medications and Allergies Home Medications Medication Instructions Recorded Confirmed Type No Known Home Medications 07/14/20 12/15/20 History Allergies Allergy/AdvReac Type Severity Reaction Status Date / Time avocado Allergy Rash/Hives Verified 09/07/21 15:53 banana Allergy Rash/Hives Verified 09/07/21 15:53 cashew nut Allergy Unknown Verified 09/07/21 15:53 cucumber Allergy Unknown Verified 09/07/21 15:53 latex Allergy Rash/Hives Verified 09/07/21 15:53 rober Allergy Unknown Verified 09/07/21 15:53 Melon Allergy Unknown Verified 09/07/21 15:53 papaya Allergy Unknown Verified 09/07/21 15:53 pear Allergy Unknown Verified 09/07/21 15:53 tomato Allergy Rash/Hives Verified 09/07/21 15:53 Physical Exam Vitals: Vital Signs Temp Pulse Pulse Resp BP Pulse Ox 09/07/21 17:30 46 L 18 103/76 98 09/07/21 16:01 51 L 09/07/21 15:48 97.8 F 54 L 18 132/70 99 Intake and Output 09/07/21 09/07/21 09/07/21 06:59 14:59 22:59 Other: Weight 115.666 kg Awake alert oriented 3, no acute distress Head and neck: Anicteric sclera, extraocular movements intact, no facial asymmetry, oropharyngeal mucosa is moist without any lesions, neck is supple without rigidity, no neck masses or neck vein distention Heart: Regular rhythm and rate, S1, S2; no murmurs rubs or gallops Lungs: Breath sounds present bilateral, no wheezing, rhonchi or crackles Abdomen: Bowel sounds present throughout, abdomen is soft, nontender, nondistended, no involuntary guarding, no hernias or organomegaly, no flank tenderness Extremities: No peripheral edema, no cyanosis, warm well perfused with palpable dorsalis pedis pulses bilateral and good capillary refill, without joint swelling or deformities; dorsalis pedis and radial artery pulses are present bilaterally and symmetrically Musculoskeletal no joint swelling or deformities Skin without rashes Neurological: No focal neurological deficit Results CBC & Chem 7: 09/07/21 16:05 09/07/21 16:05 Labs: Abnormal Lab Results - Last 24 Hours (Table) 09/07/21 Range/Units 16:05 Sodium 136 L (137-145) mmol/L AST 40 H (14-36) U/L ALT 64 H (4-34) U/L Assessment and Plan Assessment: #Chest pain With features typical for angina including exertional chest pain with radiation to the left shoulder and jaw and the result with the nitroglycerin History of premature coronary artery disease in the family Troponin 1 negative next the chest x-ray without acute distress EKG without acute STT changes Admit patient for further evaluation of this pain We'll order repeat troponin every 42 Ordered d-dimer Echocardiogram Continue aspirin, statin Cardiology consultation #Sinus bradycardia Per patient, this is known to her but has never been evaluated She has been asymptomatic Continue on telemetry Ordered TSH Cardiology consultation Echocardiogram Avoid beta blockers or calcium channel blockers #Elevated liver enzymes Normal bilirubin and alkaline phosphatase Viral hepatitis panel and ultrasound ordered DVT prophylaxis: SCDs Admitted under observation Home medications reviewed Full code
[2021-09-07] MEDS: SODIUM CHLORIDE 0.9% 1,000 ML IV SCH (21:03)
[2021-09-08 07:50] VITALS: PULSE 47
[2021-09-08] MEDS ORDERED: DOBUTamine DRIP for NUC MED 500 MG in DEXTROSE/WATER 1 250ML.BAG IV PRN (08:39)
--- NOTE | 2021-09-08 08:39 | US ---
EXAMINATION TYPE: US abdomen limited DATE OF EXAM: 09/08/2021 COMPARISON: NONE CLINICAL HISTORY: elevated liver enzymes. Elevated LFT's EXAM MEASUREMENTS: Liver Length: 17.1 cm Gallbladder Wall: 0.2 cm CBD: 0.5 cm Right Kidney: 13.1 x 4.2 x 5.3 cm Pancreas: wnl, tail obscured by overlying bowel gas Liver: There is a somewhat coarse echotexture, no dilated intra or extrahepatic biliary duct Gallbladder: Multiple gallstones Evidence for sonographic Dale's sign: No CBD: wnl Right Kidney: wnl, lower pole gassed out IMPRESSION: Cholelithiasis, correlate for possible hepatocellular disease, hepatic steatosis
[2021-09-08] MEDS ORDERED: ASPIRIN 81 MG PO SCH (09:00)
[2021-09-08] MEDS ORDERED: ATORVASTATIN 40 MG TAB PO SCH (09:00)
[2021-09-08 09:39] LABS: Hepatitis B Surface AB- Quant 71.9 mIU/mL; Hepatitis B Surface Antibody Reactive (Nonreactive)
[2021-09-08] MEDS: SODIUM CHLORIDE 0.9% 1,000 ML IV SCH (09:54)
[2021-09-08 09:55] LABS: ALT 57 U/L (8-44); AST 32 U/L (13-35); African American GFR (CKD) 106.1 (60.0-200.0); Albumin 4.2 g/dL (3.8-4.9); Albumin/Globulin Ratio 1.91 (1.60-3.17); Alkaline Phosphatase 74 U/L (41-126); BUN/Creat Ratio 15.88 Ratio (12.00-20.00); Blood Urea Nitrogen 12.7 mg/dL (9.0-27.0); Calcium 8.7 mg/dL (8.7-10.3); Carbon Dioxide 26.5 mmol/L (20.0-27.5); Chloride 105 mmol/L (96-109); Chol/HDL Ratio 6.27 Ratio; Globulin 2.2 g/dL (1.6-3.3); Glucose 94 mg/dL (70-110); LDL Cholesterol,Calculated 105.6 mg/dL (0.0-131.0); Magnesium 2.3 mg/dL (1.5-2.4); Non-African American GFR(CKD) 91.6 (60.0-200.0); Potassium 4.5 mmol/L (3.5-5.5); Sodium 140 mmol/L (135-145); Total Protein 6.4 g/dL (6.2-8.2)
[2021-09-08 09:56] LABS: Hepatitis A Ab, Total Reactive (Nonreactive); Hepatitis B Surface Antigen Nonreactive (Nonreactive); Hepatitis C IgG Antibody Nonreactive (Nonreactive)
--- NOTE | 2021-09-08 10:18 | P.CRDCN ---
History of Present Illness History of present illness: HISTORY OF PRESENTING ILLNESS This is a pleasant 41-year-old female past medical history significant for hyperlipidemia and epilepsy, family history of cardiac disease, former tobacco use. 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 We have been asked to see in consultation for chest pain. Patient is seen and examined at bedside. 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 She states she was not lifting anything heavy. She stood up and then had sudden onset crushing chest pain in the center and left side of her chest. Radiated to her jaw. She felt slightly short of breath, lightheaded and dizzy. It lasted about 1 hour. EMS was called. She was given nitro with some improvement. She denies any associated nausea, vomiting, diaphoresis. No syncope. Her chest discomfort has resolved. She denies any history of CAD, UT, Stroke, Diabetes. Family history includes father of UT in his 50s. She states she quit smoking about 10 years ago DIAGNOSTICS EKG reveals sinus bradycardia, heart rate 51, early repolarization noted in inferior and anterior leads. Poor R wave progression. No acute ischemia noted. Most recent exercise stress test in 2016 negative Echocardiogram in 2016 revealed EF 5560%, no significant wall motion abnormalities Telemetry tracings indicate sinus mechanism, no acute arrhythmia noted Chest xray no acute cardiopulmonary process. Laboratory reviewed, troponin negative 3, TSH within normal limits, CBC unremarkable, sodium 140, potassium 4.5, BUN 12, serum creatinine 0.8, magnesium 2.3, AST 40, ALT 64 Current home cardiac medications include none REVIEW OF SYSTEMS CONSTITUTIONAL: Denies fever or chills. CARDIOVASCULAR: + chest pain, Denies shortness of breath, orthopnea, PND or palpitations. RESPIRATORY: Denies cough. GASTROINTESTINAL: Denies abdominal pain, diarrhea, constipation, nausea or vomiting. MUSCULOSKELETAL: Denies myalgias. NEUROLOGIC: Denies numbness, tingling, headache or weakness. ENDOCRINE: Denies fatigue, weight change, polydipsia or polyurina. GENITOURINARY: Denies burning, hematuria or urgency with micturation. HEMATOLOGIC: Denies history of anemia or bleeding. PHYSICAL EXAMINATION Blood pressure 100/67, heart rate 47, afebrile, oxygen saturation 99% on room air CONSTITUTIONAL: No apparent distress. HEENT: Head is normocephalic. Pupils are equal, round. Sclerae anicteric. Mucous membranes of the mouth are moist. No JVD. No carotid bruit. CHEST EXAMINATION: Lungs are clear to auscultation. No chest wall tenderness is noted on palpation or with deep breathing. HEART EXAMINATION: Regular rate and rhythm. S1, S2 heard. No murmurs, gallops or rub. ABDOMEN: Soft, nontender. Positive bowel sounds. EXTREMITIES: 2+ peripheral pulses, no lower extremity edema and no calf tenderness. SKIN: warm, dry NEUROLOGIC EXAMINATION: Patient is awake, alert and oriented x3. ASSESSMENT Chest pain, atypical, acute coronary syndrome has been ruled out Mildly elevated LFTs History of hyperlipidemia History of epilepsy History of tobacco use Family history of coronary artery disease PLAN An acute coronary event has been ruled out with no EKG evidence of ischemia and negative cardiac enzymes. Obtain 2D echocardiogram and doppler study to assess cardiac structure and function. Perform Dobutamine stress Echo test to assess for stress induced cardiac ischemia. If abnormal will consider coronary angiography. Check hemoglobin A1C and lipid panel If her stress test is negative, no further inpatient workup from a cardiology perspective. Thank you kindly for this consultation. Nurse practitioner note has been reviewed by physician. Signing provider agrees with the documented findings, assessment, and plan of care. Past Medical History Past Medical History: Hyperlipidemia, Seizure Disorder Additional Past Medical History / Comment(s): last seizure in 2010. 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 right axilla lymph node removal Past Anesthesia/Blood Transfusion Reactions: No Reported Reaction Past Psychological History: ADD/ADHD, Bipolar Additional Psychological History / Comment(s): Pt resides with her mom and three children. She is independent. Smoking Status: Former smoker Past Alcohol Use History: Rare Additional Past Alcohol Use History / Comment(s): Pt started smoking in 1991 and quit in 2014. Past Drug Use History: None Reported - Past Family History Father Family Medical History: Congestive Heart Failure (CHF), Liver Disease, Myocardial Infarction ([place]) Additional Family Medical History / Comment(s): Father of CHF at the age of 57yrs. He also had hepatitis C. Mother Family Medical History: Cancer, Thyroid Disorder Additional Family Medical History / Comment(s): Non hodgkins lymphoma, hypothyroid Medications and Allergies Home Medications Medication Instructions Recorded Confirmed Type Butalb/APAP/Caff 50-325-40Mg 1 - 2 tab PO DIRECTED PRN 09/08/21 09/08/21 History [Fioricet 50-325-40] Allergies Allergy/AdvReac Type Severity Reaction Status Date / Time avocado Allergy Rash/Hives Verified 09/07/21 18:27 banana Allergy Rash/Hives Verified 09/07/21 18:27 cashew nut Allergy Unknown Verified 09/07/21 18:27 cucumber Allergy Unknown Verified 09/07/21 18:27 latex Allergy Rash/Hives Verified 09/07/21 18:27 rober Allergy Unknown Verified 09/07/21 18:27 Melon Allergy Unknown Verified 09/07/21 18:27 papaya Allergy Unknown Verified 09/07/21 18:27 pear Allergy Unknown Verified 09/07/21 18:27 tomato Allergy Rash/Hives Verified 09/07/21 18:27 Physical Exam Vitals: Vital Signs Temp Pulse Pulse Resp BP BP Pulse Ox 09/08/21 01:27 97.9 F 56 L 16 125/64 99 09/07/21 19:46 98.1 F 49 L 18 128/64 100 09/07/21 19:00 48 L 18 115/81 99 09/07/21 17:30 46 L 18 103/76 98 09/07/21 16:01 51 L 09/07/21 15:48 97.8 F 54 L 18 132/70 99 Intake and Output 09/07/21 09/08/21 09/08/21 22:59 06:59 14:59 Other: # Voids 2 2 Weight 115.666 kg Results 09/07/21 16:05 09/08/21 06:16 Cardiac Enzymes 09/07/21 09/07/21 09/07/21 Range/Units 16:05 16:05 18:42 AST 40 H (14-36) U/L Troponin I <0.012 <0.012 (0.000-0.034) ng/mL 09/07/21 Range/Units 21:58 AST (14-36) U/L Troponin I <0.012 (0.000-0.034) ng/mL Coagulation 09/07/21 Range/Units 16:05 PT 10.1 (9.0-12.0) sec APTT 24.6 (22.0-30.0) sec CBC 09/07/21 Range/Units 16:05 WBC 5.8 (3.8-10.6) k/uL RBC 4.06 (3.80-5.40) m/uL Hgb 12.7 (11.4-16.0) gm/dL Hct 36.4 (34.0-46.0) % Plt Count 234 (150-450) k/uL Comprehensive Metabolic Panel 09/07/21 Range/Units 16:05 Sodium 136 L (137-145) mmol/L Potassium 4.4 (3.5-5.1) mmol/L Chloride 105 (98-107) mmol/L Carbon Dioxide 24 (22-30) mmol/L BUN 15 (7-17) mg/dL Creatinine 0.69 (0.52-1.04) mg/dL Glucose 92 (74-99) mg/dL Calcium 8.9 (8.4-10.2) mg/dL AST 40 H (14-36) U/L ALT 64 H (4-34) U/L Alkaline Phosphatase 80 (38-126) U/L Total Protein 7.4 (6.3-8.2) g/dL Albumin 4.5 (3.5-5.0) g/dL Current Medications Generic Name Dose Route Start Last Admin Trade Name Freq PRN Reason Stop Dose Admin Acetaminophen 650 mg 09/07/21 18:10 09/07/21 23:09 Acetaminophen Tab 325 Mg Tab PO 650 mg Q6HR PRN Administration Mild Pain or Fever > 100.5 Aspirin 81 mg 09/08/21 09:00 Aspirin 81 Mg PO DAILY [facility] Atorvastatin Calcium 40 mg 09/08/21 09:00 Atorvastatin 40 Mg Tab PO DAILY [facility] Sodium Chloride 1,000 mls @ 75 mls/hr 09/07/21 18:15 09/07/21 21:03 Saline 0.9% IV 75 mls/hr .[id number] LUDWIN Administration Naloxone HCl 0.2 mg 09/07/21 18:10 Naloxone 0.4 Mg/Ml 1 Ml Vial IV Q2M PRN Opioid Reversal Nitroglycerin 0.4 mg 09/07/21 18:18 Nitroglycerin Sl Tabs 0.4 Mg Tab SUBLINGUAL Q5M PRN Chest Pain Intake and Output 09/07/21 09/08/21 09/08/21 22:59 06:59 14:59 Other: # Voids 2 2 Weight 115.666 kg 09/07/21 16:05 09/07/21 16:05
[2021-09-08] MEDS ORDERED: DOBUTamine DRIP for NUC MED 500 MG/250 ML BAG IV ONE (11:00)
[2021-09-08 13:51] VITALS: BP 113/75; RESP 60; TEMP 98.5
--- NOTE | 2021-09-08 15:25 | CA ---
Transthoracic Echo Report Name: Alicia Mora Age: 41 Gender: F : 1980 Exam Date: 09/08/2021 09:11 Exam Location: [facility] Ht (in): 66 Wt (lb): 255 Ordering Physician: Lorenzo Lucia MD Attending/Referring Phys: Painter Ordnance Julieta Gaona RDCS Procedure CPT: Indications: Chest Pain Cardiac Hx: Technical Quality: Fair Contrast 1: Total Dose (mL): Contrast 2: Total Dose (mL): MEASUREMENTS (Male / Female) Normal Values 2D ECHO LV Diastolic Diameter PLAX 4.6 cm 4.2 - 5.9 / 3.9 - 5.3 cm LV Systolic Diameter PLAX 2.5 cm IVS Diastolic Thickness 1.3 cm 0.6 - 1.0 / 0.6 - 0.9 cm LVPW Diastolic Thickness 1.2 cm 0.6 - 1.0 / 0.6 - 0.9 cm LV Relative Wall Thickness 0.6 RV Internal Dim ED PLAX 3.9 cm LA Volume 58.9 cm??? 18 - 58 / 22 - 52 cm??? M-MODE Aortic Root Diameter MM 2.5 cm LA Systolic Diameter MM 4.0 cm LA Ao Ratio MM 1.6 AV Cusp Separation MM 1.6 cm DOPPLER AV Peak Velocity 137.6 cm/s AV Peak Gradient 7.6 mmHg LVOT Peak Velocity 132.5 cm/s LVOT Peak Gradient 7.0 mmHg MV Area PHT 3.9 cm??? Mitral E Point Velocity 112.6 cm/s Mitral A Point Velocity 64.1 cm/s Mitral E to A Ratio 1.8 MV Deceleration Time 192.4 ms MV E' Velocity 9.7 cm/s Mitral E to MV E' Ratio 11.6 FINDINGS Left Ventricle Mildly increased left ventricular wall thickness. Normal left ventricular systolic function with no obvious regional wall motion abnormalities. Normal left ventricular diastolic filling pattern. Left ventricular ejection fraction is estimated at 55-60 %. Right Ventricle Mild right ventricular dilatation. Right ventricular systolic pressure within normal limits. Right Atrium Normal right atrial size. Left Atrium Mildly increased left atrial volume. No evidence for an atrial septal defect. Mitral Valve Structurally normal mitral valve. Mild mitral regurgitation. Aortic Valve Trileaflet aortic valve. No aortic valve stenosis or regurgitation. Tricuspid Valve Structurally normal tricuspid valve. Mild tricuspid regurgitation. Pulmonic Valve Structurally normal pulmonic valve. Trace pulmonic regurgitation. Pericardium No pericardial effusion. Aorta Normal size aortic root and proximal ascending aorta. CONCLUSIONS Mild LVH with preserved systolic function Previewed by: Dr. Ruel Hammond MD (Electronically Signed) Final Date: 08 September 2021 15:24
--- NOTE | 2021-09-08 15:43 | CA ---
Dobutamine Stress Echocardiogram Report Alicia Mora Age: 41 Gender: F : 1980 Exam Date: 09/08/2021 10:56 Exam Location: [facility] Ordering Physician: Sofía Romero Referring Physician: , Electrical And Radio Aircraft Mechanic: elizabeth, Technologist: Ht (in): 66 Wt (lb): 255 Procedure CPT: Indication: Chest Pain ICD-9 Codes: Rhythm: Patient History: Chest Pain Cardiac Medications: Medications in past 24 hours: Contrast: Total Dose (mL): Stress Results Protocol: Standard Peak Dose (???g/kg/min): 30 Duration (min:sec): Atropine:(mg) Target HR: 152 Double Product: [id number] Resting HR: 42 Resting BP: 105 / 46 Peak HR: 158 Peak BP: 158 / 68 Max Predicted HR: 179 88 % Max Predicted HR Stress Summary: BP Response: Reason for Termination: Exceeded target heart rate (85% max predicted) Cardiac Symptoms: Chest pain ECG Analysis Resting EKG: Stress EKG: Arrhythmia: Echo Analysis Base Echo Analysis: Low Echo Anaylsis: Peak Echo Analysis: Recovery Echo: MEASUREMENTS (Male/Female) Normal Values CONCLUSIONS Dobutamine stress echo Normal twelve-lead EKG at baseline Normal LV size and function without segmental wall motion abnormalities No ECG or echocardiographic evidence for ischemia with dobutamine infusion up to 30 mics Patient complained of 5 out of 10 chest discomfort without any ECG abnormalities and without any echocardiographic abnormalities Normal heart rate and blood pressure response Impression Normal dobutamine stress echo Dr. Ruel Hammond MD (Electronically Signed) Final Date: 08 September 2021 15:43
[2021-09-08] MEDS ORDERED: KETOROLAC 15 MG/ML 1 ML VIAL IVP STA (16:00)
[2021-09-08] MEDS ORDERED: diphenhydrAMINE 50 MG/ML 1 ML VIAL IVP STA (16:00)
[2021-09-08] MEDS ORDERED: PROCHLORPERAZINE INJ 10 MG/2 ML VIAL IVP STA (16:00)
--- NOTE | 2021-09-08 18:10 | P.DS ---
Providers Date of admission: 09/07/21 18:10 Expected date of discharge: 09/08/21 Attending physician: Lorenzo Lucia MD Consults: 09/07/21 18:10 Consult Physician Routine Consulting Provider: Bowen Cazares Consult Reason/Comments: Chest pain Do you want consulting provider notified?: Yes Primary care physician: Brandie Simon MD Hospital Course: Discharge Diagnosis: Chest pain, acute coronary event ruled out. Hyperlipidemia Migraines Seizure disorder Hospital Course: Patient is a very pleasant 41-year-old female with a past medical history of hyperlipidemia, migraines and seizure disorder. She presented to the emergency department on 09/07/21 with a chief complaint of chest pain. In the emergency department, patient underwent full evaluation. An EKG was completed showing sinus bradycardia at 51 bpm with no noted T-wave or ST abnormalities. Chest x- ray negative for acute cardiopulmonary process. CBC unremarkable. Coags normal findings. D-dimer normal at 0.51. BMP unremarkable. Liver profile revealed slightly elevated AST of 40 and ALT of 64. Troponin negative at less than 0.012. Patient was admitted under our services with consultation to cardiology. She was monitored overnight and troponins trended all resulting negative at less than 0.0123 draws. Lipid profile revealing elevated triglycerides of 262, LDL of 52.40, and HDL of 30.00. Echocardiogram revealing EF of 55-60% with mild right and left ventricular hypertrophy. Patient was evaluated by cardiology and underwent a dobutamine stress test. Stress test resulting normal dobutamine stress echo and stress test. Patient has been cleared from cardiac standpoint recommending follow-up in the office in one week. Patient reports resolution of previously reported chest pain and reported currently having typical migraine headache. Patient was medicated with migraine cocktail resulting in improvement of previously reported headache. Patient was started on atorvastatin secondary to elevated cholesterol levels. Patient is medically stable for discharge at this time and to follow up outpatient with PCP in 1-2 days and cardiology in 1 week. Physical examination: General: non toxic, no distress, appears at stated age overweight.. Derm: warm, dry Head: atraumatic, normocephalic, symmetric Eyes: EOMI, no lid lag, anicteric sclera Mouth: no lip lesion, mucus membranes moist Cardiovascular: S1S2 reg, no murmur, positive posterior tibial pulse bilateral, Lungs: CTA bilateral, no rhonchi, no rales , no accessory muscle use Abdominal: soft, nontender to palpation, no guarding, no appreciable organomegaly Ext: no gross muscle atrophy, no edema, no contractures Neuro: CN II-XI grossly intact, no focal neuro deficits Psych: Alert, oriented, appropriate affect A total of 34 minutes of time were spent preparing this complex discharge s yola. Pt was discharged on 09/08/21 at 6 PM. Patient Condition at Discharge: Stable Plan - Discharge Summary New Discharge Prescriptions: New Atorvastatin [Lipitor] 40 mg PO DAILY 30 Days #30 tab Continue Butalb/APAP/Caff 50-325-40Mg [Fioricet 50-325-40] 1 - 2 tab PO DIRECTED PRN PRN Reason: Migraine Headache Discharge Medication List Atorvastatin [Lipitor] 40 mg PO DAILY 30 Days #30 tab 09/08/21 [Rx] Butalb/APAP/Caff 50-325-40Mg [Fioricet 50-325-40] 1 - 2 tab PO DIRECTED PRN 09/08/21 [History] Follow up Appointment(s)/Referral(s): Brandie Simon MD [Primary Care Provider] - 1-2 days Ruel Hammond MD [STAFF PHYSICIAN] - 1 Week Activity/Diet/Wound Care/Special Instructions: Activity: As tolerated. Take breaks as needed. Diet: Heart healthy and carb consistent diet. Avoid salts, or foods with hidden salts such as canned or boxed foods and frozen dinners. Extra salt makes your heart work harder and traps the fluid in your body for longer. Special Instructions: Take all of your medications as directed and remember to keep all of your doctor's appointments and follow-up as needed. Thank you for allowing us to participate in your care, it was truly a pleasure having you for our patient!!! Discharge Disposition: HOME SELF-CARE
== END 2021-09-08 18:38 | disposition home or self-care (01) ==
LOC: EC 15:47 → 3SCARD 18:10 → 6NMEDSUR 18:41
PROVIDERS: ADMIT Hospitalist; ATTEND Hospitalist
DX: R07.89 Other chest pain (principal); R79.89 Other specified abnormal findings of blood chemistry; R74.8 Abnormal levels of other serum enzymes; R74.01 Elevation of levels of liver transaminase levels; R06.02 Shortness of breath; R00.1 Bradycardia, unspecified; R61 Generalized hyperhidrosis; R42 Dizziness and giddiness; R11.0 Nausea; E78.5 Hyperlipidemia, unspecified; G43.909 Migraine, unspecified, not intractable, without status migrainosus; G40.909 Epilepsy, unspecified, not intractable, without status epilepticus; E78.1 Pure hyperglyceridemia; E78.00 Pure hypercholesterolemia, unspecified; E66.3 Overweight; Z68.41 Body mass index [BMI] 40.0-44.9, adult; F90.9 Attention-deficit hyperactivity disorder, unspecified type; F31.9 Bipolar disorder, unspecified; I08.1 Rheumatic disorders of both mitral and tricuspid valves; Z87.891 Personal history of nicotine dependence; Z91.040 Latex allergy status; Z91.018 Allergy to other foods; Z83.1 Family history of other infectious and parasitic diseases; Z82.49 Family history of ischemic heart disease and other diseases of the circulatory system; Z80.7 Family history of other malignant neoplasms of lymphoid, hematopoietic and related tissues; Z83.49 Family history of other endocrine, nutritional and metabolic diseases
CPT/HCPCS: 96361 ×3; 96375; 96374; 99285; 36415; 93005; 93306; 93351; 86803; 85379; 80061; 80053 ×2; 84443; 83735 ×2; 84484; 85025; 85610; 85730; 86706; 87340; 86708; 83036; 71046; 76705; G0378 ×3; J1200; J0780; J2405; J1885

== ENCOUNTER → 2021-12-14 | Outpatient (CLI) | payer OTHER ==
[2021-12-14 13:07] VITALS: BP 116/78; PULSE 45; TEMP 98.1; BMI 42.2
--- NOTE | 2021-12-21 14:49 | P.HPBAR ---
Bariatric H&P - History & Physicial H&P Date: 12/14/21 History & Physicial: Visit/CC: bariatric appt Patient initial contact: Initial weight: Initial weight in pounds: Height: 5 ft 5.25 in Initial BMI: Last weight: Current weight: 115.984 kg Current weight in pounds: 255.70 Current BMI: 42.2 [place] body weight (based on NIH guidelines): 57.266 kg Excess body weight loss: The patient is a 41 year-old F who presents for Bariatric Assessment. Patient presents today for bariatric assessment. She is interested sleeve gastrectomy. Patient has been morbidly obese most of her life. Her BMI today is 42. She has multiple coronary sleeve to morbid obesity. Past Medical History Past Medical History: Hyperlipidemia, Seizure Disorder Additional Past Medical History / Comment(s): last seizure in 2010. 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 right axilla lymph node removal Past Anesthesia/Blood Transfusion Reactions: No Reported Reaction Past Psychological History: ADD/ADHD, Bipolar Additional Psychological History / Comment(s): Pt resides with her mom and three children. She is independent. Smoking Status: Former smoker Past Alcohol Use History: Rare Additional Past Alcohol Use History / Comment(s): Pt started smoking in 1991 and quit in 2014. Past Drug Use History: None Reported - Past Family History Father Family Medical History: Congestive Heart Failure (CHF), Liver Disease, Myocardial Infarction ([place]) Additional Family Medical History / Comment(s): Father of CHF at the age of 57yrs. He also had hepatitis C. Mother Family Medical History: Cancer, Thyroid Disorder Additional Family Medical History / Comment(s): Non hodgkins lymphoma, hypothyroid Surgical - Exam Vital Signs Temp Pulse BP 98.1 F 45 L 116/78 12/14/21 13:01 12/14/21 13:01 12/14/21 13:01 - General well developed, well nourished, no distress - Eyes PERRL - ENT normal pinna - Neck no masses - Respiratory normal expansion - Cardiovascular Rhythm: regular - Abdomen Abdomen: soft, non tender Bariatric Assessment & Plan Plan: Morbid obesity, BMI 42. Patient will undergo EGD to evaluate her stomach prior to sleeve gastrectomy. Bariatric Checklist Checklist: Plan: Checklist: EGD: 1. Hiatal hernia: 2. H. Pylori: HgbA1c: Vitamin D: Smoking: Never smoker Primary care physician referral: Dr. Simon ([place]) Psychiatry clearance: Cardiology clearance: Sleep study: Diet journal: VTE risk score: VTE risk level: Rehab needs at discharge:
== END ==
LOC: BARWHC3 12:23
PROVIDERS: ATTEND Surgery
DX: E66.01 Morbid (severe) obesity due to excess calories (principal); Z68.41 Body mass index [BMI] 40.0-44.9, adult; E78.5 Hyperlipidemia, unspecified; F31.9 Bipolar disorder, unspecified; Z87.891 Personal history of nicotine dependence; Z91.018 Allergy to other foods; Z91.040 Latex allergy status
CPT/HCPCS: 99211

== ENCOUNTER → 2022-02-09 | Outpatient (CLI) | payer OTHER ==
--- NOTE | 2022-02-09 13:15 | P.HPBAR ---
Bariatric H&P - History & Physicial H&P Date: 02/09/22 History & Physicial: Visit/CC: Patient initial contact: Initial weight: Initial weight in pounds: Height: Initial BMI: Last weight: Current weight: Current weight in pounds: Current BMI: [place] body weight (based on NIH guidelines): Excess body weight loss: The patient is a 41 year-old F who presents for Bariatric Assessment. Patient presents today as a new bariatric assessment. Patient was previously being seen by different bariatric surgeon but asked the bariatric nursing staff if she could switch to a different surgeon and an appointment was made to see me today. Patient has comorbidities including sleep apnea, hypercholesterolemia, chronic back pain and joint pain. Patient has mild GERD symptoms. No tobacco use for the last 10 years. Previous surgeries include 3 and right oophorectomy. No dysphagia or DVT history. Was evaluated by cardiology this summer for chest pain. Workup negative. Mother had previous gastric bypass. She knows people who had the lap band and the sleeve gastrectomy. Current BMI 41. Review of Systems The patient denies any acute changes in vision or hearing, no dysphagia or odynophagia, no chest pain or shortness of breath, no dysuria or hematuria, no headache, no runny nose, no rectal bleeding or melena, no unexplained weight loss Past Medical History Past Medical History: Hyperlipidemia, Seizure Disorder Additional Past Medical History / Comment(s): last seizure in 2010. 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 right axilla lymph node removal Past Anesthesia/Blood Transfusion Reactions: No Reported Reaction Past Psychological History: ADD/ADHD, Bipolar Additional Psychological History / Comment(s): Pt resides with her mom and three children. She is independent. Smoking Status: Former smoker Past Alcohol Use History: Rare Additional Past Alcohol Use History / Comment(s): Pt started smoking in 1991 and quit in 2014. Past Drug Use History: None Reported - Past Family History Father Family Medical History: Congestive Heart Failure (CHF), Liver Disease, Myocardial Infarction ([place]) Additional Family Medical History / Comment(s): Father of CHF at the age of 57yrs. He also had hepatitis C. Mother Family Medical History: Cancer, Thyroid Disorder Additional Family Medical History / Comment(s): Non hodgkins lymphoma, hypothyroid Surgical - Exam Physical exam: General: Well-developed, well-nourished HEENT: Normocephalic, sclerae nonicteric Abdomen: Nontender, nondistended Extremities: No edema Neuro: Alert and oriented Bariatric Assessment & Plan (1) Morbid obesity Narrative/Plan: 41-year-old female with morbid obesity and associated comorbidities. Surgical options including gastric bypass and sleeve gastrectomy were discussed in detail. Patient would like to avoid the gastric bypass because of the issues she is seen with her mother. She is already gone over the surgical consent form. Additional questions reviewed. Patient has had previous EGD showing no evidence of hiatal hernia or ulcer formation. We'll schedule for laparoscopic da Jamaal-assisted sleeve gastrectomy, possible open after the new year. The risks of bleeding, infection, stenosis, stricture, leak, abscess, fistula formation, peritonitis, poor weight loss, reflux, vomiting, conversion to an open procedure, aborting sleeve gastrectomy, [place], PE, DVT, and were discussed. The patient understands and wishes to proceed. Status: Acute Bariatric Checklist Checklist: Plan: Checklist: EGD: 1. Hiatal hernia: 2. H. Pylori: HgbA1c: Vitamin D: Smoking: Never smoker Primary care physician referral: Dr. Simon ([place]) Psychiatry clearance: Cardiology clearance: Sleep study: Diet journal: VTE risk score: VTE risk level: Rehab needs at discharge:
[2022-02-09 13:18] VITALS: BP 124/86; PULSE 69; TEMP 98.2; BMI 41.4
== END ==
LOC: BARWHC3 12:48
PROVIDERS: ATTEND Surgery
DX: Z01.818 Encounter for other preprocedural examination (principal); E66.01 Morbid (severe) obesity due to excess calories; Z68.41 Body mass index [BMI] 40.0-44.9, adult; Z91.040 Latex allergy status; Z91.018 Allergy to other foods
CPT/HCPCS: 99211

== ENCOUNTER → 2022-04-15 | Outpatient (CLI) | payer OTHER ==
[2022-04-15 19:25] LABS: Basophils # (A) 0.08 X 10*3/uL (0.00-0.10); Basophils % (A) 0.8 %; Eosinophils # (A) 0.26 X 10*3/uL (0.04-0.35); Eosinophils % (A) 2.7 %; HCT 42.3 % (37.2-46.3); HGB 13.7 g/dL (12.0-15.0); Immature Grans, Automated 0.3 %; Lymphocytes # (A) 3.01 X 10*3/uL (0.90-5.00); Lymphocytes % (A) 31.2 %; MCH 29.7 pg (27.0-32.0); MCHC 32.4 g/dL (32.0-37.0); MCV 91.6 fL (80.0-97.0); Mean Platelet Volume 8.7 fL (9.5-12.2); Monocytes # (A) 0.67 X 10*3/uL (0.20-1.00); NRBC Per 100 WBC 0 /100 WBCS (0.0-0.0); Neutrophils # (A) 5.59 X 10*3/uL (1.80-7.70); Platelet Count 303 X 10*3/uL (140-440); RBC 4.62 X 10*6/uL (4.10-5.20); WBC 9.64 X 10*3/uL (4.50-10.00)
[2022-04-15 19:38] LABS: African American GFR (CKD) 128.3 (60.0-200.0); Albumin 4.7 g/dL (3.8-4.9); Albumin/Globulin Ratio 1.57 (1.60-3.17); Anion Gap 11.6 mmol/L (10.00-18.00); BUN/Creat Ratio 31.73 Ratio (12.00-20.00); Blood Urea Nitrogen 20.4 mg/dL (9.0-27.0); Calcium 9.4 mg/dL (8.7-10.3); Carbon Dioxide 26.7 mmol/L (20.0-27.5); Non-African American GFR(CKD) 110.7 (60.0-200.0); Potassium 4.4 mmol/L (3.5-5.5); Total Bilirubin 0.3 mg/dL (0.30-1.20); Total Protein 7.7 g/dL (6.2-8.2)
== END | disposition home or self-care (01) ==
LOC: LABPAT 13:49
PROVIDERS: ATTEND Surgery
DX: Z01.812 Encounter for preprocedural laboratory examination (principal)
CPT/HCPCS: 80053; 85025

== ENCOUNTER → 2022-04-30 | Outpatient (CLI) | payer OTHER ==
[2022-04-30 11:28] VITALS: BP 128/73; PULSE 62; RESP 13; TEMP 98.3; BMI 40.1
== END ==
LOC: BARWHC3 09:52
PROVIDERS: ATTEND Surgery
DX: E66.01 Morbid (severe) obesity due to excess calories (principal); Z53.9 Procedure and treatment not carried out, unspecified reason
CPT/HCPCS: 99211

== ENCOUNTER → 2022-06-22 | Outpatient (CLI) | payer OTHER ==
[2022-06-22 14:28] VITALS: BP 119/82; PULSE 56; RESP 16; TEMP 97.9; BMI 37.0
--- NOTE | 2022-06-22 15:23 | P.BASOAP ---
Subjective Progress Note Date: 06/22/22 Principal diagnosis: Morbid obesity Patient returns for recheck. She was last seen 05/18. She has lost 10 pounds. He mild GERD symptoms. No pain. No dysphagia. Tolerating solid foods now. Objective - Vital Signs Vital signs: Vital Signs Temp 97.9 F 06/22/22 14:23 Pulse 56 L 06/22/22 14:23 Resp 16 06/22/22 14:23 BP 119/82 06/22/22 14:23 Pulse Ox FiO2 Intake & Output 06/21/22 06/22/22 06/22/22 18:59 06:59 18:59 Weight 101.605 kg - Exam Abdomen: Soft, nontender, nondistended, incisions clean and dry Assessment/Plan (1) Morbid obesity Narrative/Plan: Patient doing well at this time. Continue dietary and exercise regimen. Check three-month labs next visit. Continue antiacids for now. Plan: Date: 06/22/22 Initial Weight: 119.295 kg Initial BMI: 43.4 Current Weight: 101.605 kg Current BMI: 37.0 Type of Surgery: Vertical Sleeve Gastrectomy Total Volume in Band: Previous Volume: Volume Removed: Volume Added: Band Size:
== END ==
LOC: BARWHC3 14:13
PROVIDERS: ATTEND Surgery
DX: E66.01 Morbid (severe) obesity due to excess calories (principal); Z71.3 Dietary counseling and surveillance; K21.9 Gastro-esophageal reflux disease without esophagitis; Z68.37 Body mass index [BMI] 37.0-37.9, adult; Z91.018 Allergy to other foods; Z91.040 Latex allergy status
CPT/HCPCS: 99211

== ENCOUNTER → 2022-09-28 | Outpatient (CLI) | payer OTHER ==
[2022-09-28 14:25] VITALS: BP 110/75; PULSE 81; RESP 16; TEMP 98.1; BMI 32.5
--- NOTE | 2022-09-28 14:40 | P.BASOAP ---
Subjective Progress Note Date: 09/28/22 Principal diagnosis: Morbid obesity Patient returns for recheck. Last seen on 07/27. Since last visit has done well. She has lost 12 pounds. Taking antiacids on an as-needed basis. No nausea or vomiting. She had her 3 month labs checked last visit which looked good. Objective - Vital Signs Vital signs: Vital Signs Temp 98.1 F 09/28/22 14:23 Pulse 81 09/28/22 14:23 Resp 16 09/28/22 14:23 BP 110/75 09/28/22 14:23 Pulse Ox FiO2 Intake & Output 09/27/22 09/28/22 09/28/22 18:59 06:59 18:59 Weight 89.358 kg - Exam Abdomen: Soft, nontender, nondistended Assessment/Plan (1) Morbid obesity Narrative/Plan: patient doing well at this time. Continue dietary and exercise regimen. Continue as needed antiacids. Follow-up 6-8 weeks and we'll check 6 month labs at that time. Plan: Date: 09/28/22 Initial Weight: 119.295 kg Initial BMI: 43.4 Current Weight: 89.358 kg Current BMI: 32.5 Type of Surgery: Vertical Sleeve Gastrectomy Total Volume in Band: Previous Volume: Volume Removed: Volume Added: Band Size:
== END ==
LOC: BARWHC3 13:51
PROVIDERS: ATTEND Surgery
DX: E66.01 Morbid (severe) obesity due to excess calories (principal); Z68.32 Body mass index [BMI] 32.0-32.9, adult; Z71.3 Dietary counseling and surveillance; Z91.018 Allergy to other foods; Z91.010 Allergy to peanuts; Z91.040 Latex allergy status; Z48.815 Encounter for surgical aftercare following surgery on the digestive system
CPT/HCPCS: 99211

== ENCOUNTER → 2022-11-09 | Outpatient (CLI) | payer OTHER ==
[2022-11-09 14:38] VITALS: BP 101/60; PULSE 48; RESP 16; TEMP 97.8; BMI 31.0
--- NOTE | 2022-11-09 15:00 | P.BASOAP ---
Subjective Progress Note Date: 11/09/22 Principal diagnosis: Morbid obesity Patient doing well. No dysphagia. No heartburn. Rarely takes antiacids. Trying to be more active. She is due for lab work. Objective - Vital Signs Vital signs: Vital Signs Temp 97.8 F 11/09/22 14:35 Pulse 48 L 11/09/22 14:35 Resp 16 11/09/22 14:35 BP 101/60 11/09/22 14:35 Pulse Ox FiO2 Intake & Output 11/08/22 11/09/22 11/09/22 18:59 06:59 18:59 Weight 85.275 kg - Exam Abdomen: Soft, nontender, nondistended Assessment/Plan (1) Morbid obesity Narrative/Plan: Patient doing well at this time. Continue dietary and exercise regimen. Continue as needed antiacids. Check 6 month labs. Follow-up 2 months. Plan: Date: 11/09/22 Initial Weight: 119.295 kg Initial BMI: 43.4 Current Weight: 85.275 kg Current BMI: 31.0 Type of Surgery: Vertical Sleeve Gastrectomy Total Volume in Band: Previous Volume: Volume Removed: Volume Added: Band Size:
== END ==
LOC: BARWHC3 14:28
PROVIDERS: ATTEND Surgery
DX: E66.01 Morbid (severe) obesity due to excess calories (principal); Z71.3 Dietary counseling and surveillance; Z68.31 Body mass index [BMI] 31.0-31.9, adult; Z91.018 Allergy to other foods; Z91.040 Latex allergy status
CPT/HCPCS: 99211

== ENCOUNTER → 2022-11-09 | Outpatient (CLI) | payer OTHER ==
[2022-11-09 20:34] LABS: HCT 40.9 % (37.2-46.3); HGB 13.3 d/dL (12.0-15.0); MCH 30.4 pg (27.0-32.0); MCHC 32.5 d/dL (32.0-37.0); MCV 93.6 FL (80.0-97.0); NRBC Per 100 WBC 0 X 10*3/uL (0.00-0.01); Platelet Count 263 X 10*3/uL (140-440); RBC 4.37 X 10*6/uL (4.10-5.20); RDW 11.9 % (11.5-14.5); WBC 6.03 X 10*3/uL (4.50-10.00)
[2022-11-09 21:17] LABS: ALT 20 U/L (8-44); AST 23 U/L (13-35); Albumin 4.8 d/dL (3.8-4.9); Albumin/Globulin Ratio 2.09 Ratio (1.60-3.17); Alkaline Phosphatase 63 U/L (41-126); BUN/Creat Ratio 30.25 Ratio (12.00-20.00); Blood Urea Nitrogen 24.2 mg/dL (9.0-27.0); Calcium 9.6 mg/dL (8.7-10.3); Carbon Dioxide 29.8 mmol/L (21.6-31.8); Chloride 100 mmol/L (96-109); Globulin 2.3 d/dL (1.6-3.3); Glucose 90 mg/dL (70-110); Iron 70 UG/DL (50-170); Potassium 4.5 mmol/L (3.5-5.5); Sodium 140 mmol/L (135-145); Total Bilirubin 0.4 mg/dL (0.3-1.2); Total Protein 7.1 d/dL (6.2-8.2)
== END | disposition home or self-care (01) ==
LOC: LABWHC1 15:08
PROVIDERS: ATTEND Surgery
DX: E66.01 Morbid (severe) obesity due to excess calories (principal); K90.89 Other intestinal malabsorption; E55.9 Vitamin D deficiency, unspecified
CPT/HCPCS: 36415; 80053; 82306; 82607; 82746; 83540; 84425; 85027

== ENCOUNTER → 2023-01-11 | Outpatient (CLI) | payer OTHER ==
--- NOTE | 2023-01-11 14:36 | P.BASOAP ---
Subjective Progress Note Date: 01/11/23 Principal diagnosis: Morbid obesity Patient returns for recheck. Doing well since last visit. 4 pound weight loss. Not taking any antacids. Mental reflux. Her goal is 175. Patient has a sleep study coming up to see if she still requires CPAP. Objective - Vital Signs Vital signs: Vital Signs Temp 98.1 F 01/11/23 14:21 Pulse 79 01/11/23 14:21 Resp BP 127/80 01/11/23 14:21 Pulse Ox FiO2 Intake & Output 01/10/23 01/11/23 01/11/23 18:59 06:59 18:59 Weight 83.461 kg - Exam Abdomen: Soft, nontender, nondistended Assessment/Plan (1) Morbid obesity Narrative/Plan: Patient doing well post sleeve gastrectomy last April. Await upcoming sleep study. Continue dietary and exercise regimen. Recheck 2 months. Plan: Date: 01/11/23 Initial Weight: 119.295 kg Initial BMI: 43.4 Current Weight: 83.461 kg Current BMI: 30.4 Type of Surgery: Total Volume in Band: Previous Volume: Volume Removed: Volume Added: Band Size:
[2023-01-11 14:39] VITALS: BP 127/80; PULSE 79; TEMP 98.1; BMI 30.4
== END ==
LOC: BARWHC3 13:54
PROVIDERS: ATTEND Surgery
DX: E66.01 Morbid (severe) obesity due to excess calories (principal); K21.9 Gastro-esophageal reflux disease without esophagitis; Z98.84 Bariatric surgery status; Z71.3 Dietary counseling and surveillance; Z91.018 Allergy to other foods; Z91.040 Latex allergy status; Z68.30 Body mass index [BMI] 30.0-30.9, adult
CPT/HCPCS: 99211

== ENCOUNTER → 2023-01-25 | Outpatient (CLI) | payer OTHER | LOC: 3 N SLEEP 17:13 | PROVIDERS: ATTEND Internal Medicine Critical Care Medicine | DX: G47.33 Obstructive sleep apnea (adult) (pediatric) (principal); Z91.018 Allergy to other foods; Z91.040 Latex allergy status ==

== ENCOUNTER → 2023-03-01 | Outpatient (CLI) | payer OTHER ==
[2023-03-01 14:01] VITALS: BP 128/76; PULSE 43; RESP 16; TEMP 97.8; BMI 30.2
--- NOTE | 2023-03-01 15:15 | P.BASOAP ---
Subjective Progress Note Date: 03/01/23 Principal diagnosis: Morbid obesity Patient returns for recheck. Last seen in December. She has lost 1 pound. Heart rate today 43. History of known bradycardia. No GERD. No antiacids. Objective - Vital Signs Vital signs: Vital Signs Temp 97.8 F 03/01/23 13:52 Pulse 43 L 03/01/23 13:52 Resp 16 03/01/23 13:52 BP 128/76 03/01/23 13:52 Pulse Ox FiO2 Intake & Output 02/28/23 03/01/23 03/01/23 18:59 06:59 18:59 Weight 83.007 kg - Exam Abdomen: Soft, nontender, nondistended Assessment/Plan (1) Morbid obesity Narrative/Plan: 42-year-old female returns after sleeve gastrectomy. Doing well. Continue dietary and exercise regimen. Recheck in April. Check annual labs at that time. Plan: Date: 03/01/23 Initial Weight: 119.295 kg Initial BMI: 43.4 Current Weight: 83.007 kg Current BMI: 30.2 Type of Surgery: Vertical Sleeve Gastrectomy Total Volume in Band: Previous Volume: Volume Removed: Volume Added: Band Size:
== END ==
LOC: BARWHC3 13:41
PROVIDERS: ATTEND Surgery
DX: E66.01 Morbid (severe) obesity due to excess calories (principal); Z68.30 Body mass index [BMI] 30.0-30.9, adult; Z71.3 Dietary counseling and surveillance; Z98.84 Bariatric surgery status; Z91.018 Allergy to other foods; Z91.040 Latex allergy status
CPT/HCPCS: 97803; G0463; 99211

== ENCOUNTER → 2023-04-26 | Outpatient (CLI) | payer OTHER ==
[2023-04-26 14:03] VITALS: BP 113/78; PULSE 52; RESP 16; TEMP 97.8; BMI 29.4
--- NOTE | 2023-04-26 14:10 | P.BASOAP ---
Subjective Progress Note Date: 04/26/23 Principal diagnosis: Morbid obesity Patient returns for recheck. Last seen in February. Feels well. This is her 1 year anniversary. She has lost 5 pounds since her last visit. Heart rate 52 today. She is due for annual blood work. Taking antiacids as needed. Objective - Vital Signs Vital signs: Vital Signs Temp 97.8 F 04/26/23 13:39 Pulse 52 L 04/26/23 13:39 Resp 16 04/26/23 13:39 BP 113/78 04/26/23 13:39 Pulse Ox FiO2 Intake & Output 04/25/23 04/26/23 04/26/23 18:59 06:59 18:59 Weight 80.739 kg - Exam Abdomen: Soft, nontender, nondistended Assessment/Plan (1) Morbid obesity Narrative/Plan: Patient doing well at this time. Check annual blood work. Continue dietary and exercise regimen. Follow-up 6 months. Plan: Date: 04/26/23 Initial Weight: 119.295 kg Initial BMI: 43.4 Current Weight: 80.739 kg Current BMI: 29.4 Type of Surgery: Vertical Sleeve Gastrectomy Total Volume in Band: Previous Volume: Volume Removed: Volume Added: Band Size:
[2023-04-26 19:25] LABS: HCT 39.5 % (37.2-46.3); MCHC 32.9 g/dL (32.0-37.0); MCV 91.2 FL (80.0-97.0); Mean Platelet Volume 8.9 FL (9.5-12.2); NRBC Per 100 WBC 0 X 10*3/uL (0.00-0.01); Platelet Count 264 X 10*3/uL (140-440); RBC 4.33 X 10*6/uL (4.10-5.20); RDW 11.8 % (11.5-14.5); WBC 5.63 X 10*3/uL (4.50-10.00)
[2023-04-26 19:49] LABS: BUN/Creat Ratio 26.29 Ratio (12.00-20.00); Blood Urea Nitrogen 18.4 mg/dL (9.0-27.0); Chloride 99 mmol/L (96-109); Glucose 86 mg/dL (70-110); Iron 102 UG/DL (50-170); Potassium 4.9 mmol/L (3.5-5.5); Sodium 140 mmol/L (135-145)
[2023-04-26 19:50] LABS: ALT 22 U/L (8-44); AST 23 U/L (13-35); Albumin 4.6 g/dL (3.8-4.9); Albumin/Globulin Ratio 1.92 Ratio (1.60-3.17); Alkaline Phosphatase 52 U/L (41-126); Calcium 9.8 mg/dL (8.7-10.3); Globulin 2.4 g/dL (1.6-3.3); Total Bilirubin 0.5 mg/dL (0.3-1.2)
[2023-04-28 06:15] LABS: Vitamin A 54 ug/dL (38-106)
[2023-04-28 09:45] LABS: Vit B1(Thiamine) 75 ug/L (38-122)
== END ==
LOC: BARWHC3 13:25
PROVIDERS: ATTEND Surgery
DX: E66.01 Morbid (severe) obesity due to excess calories (principal); K90.89 Other intestinal malabsorption; E55.9 Vitamin D deficiency, unspecified; Z71.3 Dietary counseling and surveillance; Z68.29 Body mass index [BMI] 29.0-29.9, adult; Z91.018 Allergy to other foods; Z91.040 Latex allergy status
CPT/HCPCS: 84425; 80053; 82607; 82746; 83540; 84590; 85027; 82306; 36415; G0463; 99211

== ENCOUNTER 2024-03-11 15:25 | Emergency (ER) | payer OTHER ==
--- NOTE | 2024-03-11 15:47 | ED ---
Abdominal Pain HPI - General Chief Complaint: Abdominal Pain Stated Complaint: Right lower quad pain Time Seen by Provider: 03/11/24 15:46 Source: patient, RN notes reviewed, old records reviewed Mode of arrival: ambulatory Limitations: no limitations - History of Present Illness Initial Comments: 43-year-old female presented to the ER for evaluation of right lower quadrant abdominal pain. She states this started around 9:30 AM and has been persistent. She states it has gradually got up to her right ribs and down her right thigh. She states it hurts to ambulate. Patient also was reporting nausea denies vomiting. Denies any urinary complaints, vaginal discharge or bleeding, diarrhea or constipation. She has not taken anything for her symptoms at this time. Patient reports a history of right oophorectomy along with gastric sleeve surgery completed by Dr. Morrissey. No fevers noted. No other complaints. - Related Data Home Medications Medication Instructions Recorded Confirmed Atorvastatin [Lipitor] 20 mg PO DAILY 12/14/21 04/27/23 Rizatriptan Benzoate [Rizatriptan] 10 mg PO Q12HR PRN 12/14/21 04/27/23 Previous Rx's Medication Instructions Recorded Omeprazole [PriLOSEC] 40 mg PO DAILY #30 cap 04/28/22 Allergies Allergy/AdvReac Type Severity Reaction Status Date / Time avocado Allergy Rash/Hives Verified 03/11/24 15:29 banana Allergy Rash/Hives Verified 03/11/24 15:29 cashew nut Allergy Unknown Verified 03/11/24 15:29 cucumber Allergy Unknown Verified 03/11/24 15:29 eggplant Allergy Unknown Verified 03/11/24 15:30 latex Allergy Rash/Hives Verified 03/11/24 15:29 rober Allergy Unknown Verified 03/11/24 15:29 Melon Allergy Unknown Verified 03/11/24 15:29 papaya Allergy Unknown Verified 03/11/24 15:29 pear Allergy Unknown Verified 03/11/24 15:29 tomato Allergy Rash/Hives Verified 03/11/24 15:29 Review of Systems ROS Statement: Those systems with pertinent positive or pertinent negative responses have been documented in the HPI. ROS Other: All systems not noted in ROS Statement are negative. Past Medical History Past Medical History: Hyperlipidemia, Seizure Disorder, Sleep Apnea/CPAP/BIPAP Additional Past Medical History / Comment(s): Last seizure in 2010, migraines, CPAP use. 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 Sleeve 04/26/22 Past Anesthesia/Blood Transfusion Reactions: No Reported Reaction, Motion Sickness Past Psychological History: ADD/ADHD, Bipolar Smoking Status: Former smoker Past Alcohol Use History: Rare Past Drug Use History: None Reported - Past Family History Father Family Medical History: Cancer, Congestive Heart Failure (CHF), Liver Disease, Myocardial Infarction ([place]) Additional Family Medical History / Comment(s): Non Hodgins Lymphoma. Father of CHF at the age of 57yrs. He also had hepatitis C. Mother Family Medical History: Cancer, Thyroid Disorder Additional Family Medical History / Comment(s): Non hodgkins lymphoma, colon cancer, basal cell cancer, hypothyroid. General Exam Limitations: no limitations General appearance: alert, in no apparent distress Respiratory exam: Present: normal lung sounds bilaterally. Absent: respiratory distress, wheezes, rales, rhonchi, stridor Cardiovascular Exam: Present: regular rate, normal rhythm, normal heart sounds. Absent: systolic murmur, diastolic murmur, rubs, gallop, clicks GI/Abdominal exam: Present: soft, tenderness (RLQ), normal bowel sounds Neurological exam: Present: alert, oriented X3, CN II-XII intact Skin exam: Present: warm, dry, intact, normal color. Absent: rash Course Vital Signs 03/11/24 03/11/24 03/11/24 15:30 17:00 18:24 Temperature 97.5 F L 97.7 F Pulse Rate 52 L 42 L 40 L Respiratory 18 16 16 Rate Blood Pressure 118/74 138/81 106/80 O2 Sat by Pulse 100 98 99 Oximetry Medical Decision Making - Medical Decision Making Was pt. sent in by a medical professional or institution (, PA, BELL ATTENDANT, urgent care, hospital, or alf...) When possible be specific @ -No Did you speak to anyone other than the patient for history (EMS, parent, family, police, friend...)? What history was obtained from this source @ -No Did you review nursing and triage notes (agree or disagree)? Why? @ -I reviewed and agree with nursing and triage notes Were old charts reviewed (outside hosp., previous admission, EMS record, old EKG, old radiological studies, urgent care reports/EKG's, alf records)? Report findings @ -No old charts were reviewed Differential Diagnosis (chest pain, altered mental status, abdominal pain women, abdominal pain men, vaginal bleeding, weakness, fever, dyspnea, syncope, headache, dizziness, GI bleed, back pain, seizure, CVA, palpatations, mental health, musculoskeletal)? @Differential Abdominal Pain Women: Appendicitis, Cholecystitis, diverticulosis, ischemic bowel, pancreatitis, hepatitis, UTI, gastroenteritis, AAA, incarcerated hernia, bowel obstruction, constipation, inflammatory bowel, hepatitis, peptic ulcer disease, splenic infarction, perforated viscus, vulvitis, ovarian torsion, PID, kidney stone, placenta abruption, this is not meant to be an all-inclusive list EKG interpreted by me (3pts min.). @ -As above X-rays interpreted by me (1pt min.). @ -None done CT interpreted by me (1pt min.). @ -CT abdomen pelvis negative for acute intra-abdominal process. U/S interpreted by me (1pt. min.). @ -None done What testing was considered but not performed or refused? (CT, X-rays, U/S, labs)? Why? @ -None What meds were considered but not given or refused? Why? @ -None Did you discuss the management of the patient with other professionals (professionals i.e. , PA, BELL ATTENDANT, lab, RT, psych nurse, certified social workers in health care, respiratory therapy manager, teacher, [employer] plans staff officer, case coordinator)? Give summary @ -No Was smoking cessation discussed for >3mins.? @ -No Was critical care preformed (if so, how long)? @ -No Were there social determinants of health that impacted care today? How? (Homelessness, low income, unemployed, alcoholism, drug addiction, transportation, low edu. Level, literacy, decrease access to med. care, residential, rehab)? @ -No Was there de-escalation of care discussed even if they declined (Discuss DNR or withdrawal of care, Hospice)? DNR status @ -No What co-morbidities impacted this encounter? (DM, HTN, Smoking, COPD, CAD, Cancer, CVA, ARF, Chemo, Hep., AIDS, mental health diagnosis, sleep apnea, morbid obesity)? @ -Chronic bradycardia Was patient admitted / discharged? Hospital course, mention meds given and route, prescriptions, significant lab abnormalities, going to OR and other pertinent info. @ -Discharged. 43-year-old female presented to ER for evaluation of right lower quadrant abdominal pain. History and physical exam completed. Patient is bradycardic on exam but states this is chronic in nature. Vitals otherwise stable. Patient denies dizziness, lightheadedness, chest pain or shortness of breath. Patient is tender to the right lower quadrant with normal bowel sounds. No rebound or guarding. Patient denies vaginal discharge or bleeding. Patient appears well-developed and well-nourished with no signs of acute distress. Laboratory studies obtained unremarkable. Urinalysis unimpressive. Patient received symptomatic control in the ER with IV fluids, Toradol and Zofran. CT abdomen pelvis negative. Patient is stable for discharge. Strict return parameters discussed. Patient discharged in stable condition with follow-up to PCP. Patient verbally expressed understanding and agreement with care plan. Case discussed with ED attending, Dr. Rodriguez. Undiagnosed new problem with uncertain prognosis? @ -No Drug Therapy requiring intensive monitoring for toxicity (Heparin, Nitro, Insulin, Cardizem)? @ -No Were any procedures done? @ -No Diagnosis/symptom? @ -Abdominal pain Acute, or Chronic, or Acute on Chronic? @ -Acute Uncomplicated (without systemic symptoms) or Complicated (systemic symptoms)? @ -Uncomplicated Side effects of treatment? @ -No Exacerbation, Progression, or Severe Exacerbation? @ -No Poses a threat to life or bodily function? How? (Chest pain, [place], [place], pneumonia, PE, COPD, DKA, ARF, appy, cholecystitis, CVA, Diverticulitis, Homicidal, Suicidal, threat to staff... and all critical care pts) @ -No - Lab Data Result diagrams: 03/11/24 15:53 03/11/24 15:53 Lab Results 03/11/24 03/11/24 03/11/24 Range/Units 15:53 15:53 15:53 WBC 5.4 (3.8-10.6) k/uL RBC 4.45 (3.80-5.40) m/uL Hgb 13.5 (11.4-16.0) gm/dL Hct 39.9 (34.0-46.0) % MCV 89.8 (80.0-100.0) fL MCH 30.4 (25.0-35.0) pg MCHC 33.8 (31.0-37.0) g/dL RDW 11.7 (11.5-15.5) % Plt Count 237 (150-450) k/uL MPV 6.3 Neutrophils % 40 % Lymphocytes % 48 % Monocytes % 5 % Eosinophils % 4 % Basophils % 1 % Neutrophils # 2.1 (1.3-7.7) k/uL Lymphocytes # 2.6 (1.0-4.8) k/uL Monocytes # 0.3 (0-1.0) k/uL Eosinophils # 0.2 (0-0.7) k/uL Basophils # 0.1 (0-0.2) k/uL Sodium 138 (137-145) mmol/L Potassium 4.3 (3.5-5.1) mmol/L Chloride 100 (98-107) mmol/L Carbon Dioxide 33 H (22-30) mmol/L Anion Gap 5 mmol/L BUN 18 H (7-17) mg/dL Creatinine 0.68 (0.52-1.04) mg/dL Est GFR (CKD-EPI)AfAm >90 (>60 ml/min/1.73 sqM) Est GFR (CKD-EPI)NonAf >90 (>60 ml/min/1.73 sqM) Glucose 85 (74-99) mg/dL Plasma Lactic Acid Torres 0.6 L (0.7-2.0) mmol/L Calcium 9.7 (8.4-10.2) mg/dL Total Bilirubin 0.7 (0.2-1.3) mg/dL AST 25 (14-36) U/L ALT 16 (4-34) U/L Alkaline Phosphatase 55 (38-126) U/L Total Protein 7.7 (6.3-8.2) g/dL Albumin 5.0 (3.5-5.0) g/dL Amylase 77 (30-110) U/L Lipase 115 (23-300) U/L Urine Color Urine Appearance (Clear) Urine pH (5.0-8.0) Ur Specific [place] (1.001-1.035) Urine Protein (Negative) Urine Glucose (UA) (Negative) Urine Ketones (Negative) Urine Blood (Negative) Urine Nitrite (Negative) Urine Bilirubin (Negative) Urine Urobilinogen (<2.0) mg/dL Ur Leukocyte Esterase (Negative) Urine RBC (0-5) /hpf Urine WBC (0-5) /hpf Ur Squamous Epith Cells (0-4) /hpf Urine Mucus (None) /hpf Urine HCG, Qual (Not Detectd) 03/11/24 03/11/24 Range/Units 17:03 17:03 WBC (3.8-10.6) k/uL RBC (3.80-5.40) m/uL Hgb (11.4-16.0) gm/dL Hct (34.0-46.0) % MCV (80.0-100.0) fL MCH (25.0-35.0) pg MCHC (31.0-37.0) g/dL RDW (11.5-15.5) % Plt Count (150-450) k/uL MPV Neutrophils % % Lymphocytes % % Monocytes % % Eosinophils % % Basophils % % Neutrophils # (1.3-7.7) k/uL Lymphocytes # (1.0-4.8) k/uL Monocytes # (0-1.0) k/uL Eosinophils # (0-0.7) k/uL Basophils # (0-0.2) k/uL Sodium (137-145) mmol/L Potassium (3.5-5.1) mmol/L Chloride (98-107) mmol/L Carbon Dioxide (22-30) mmol/L Anion Gap mmol/L BUN (7-17) mg/dL Creatinine (0.52-1.04) mg/dL Est GFR (CKD-EPI)AfAm (>60 ml/min/1.73 sqM) Est GFR (CKD-EPI)NonAf (>60 ml/min/1.73 sqM) Glucose (74-99) mg/dL Plasma Lactic Acid Torres (0.7-2.0) mmol/L Calcium (8.4-10.2) mg/dL Total Bilirubin (0.2-1.3) mg/dL AST (14-36) U/L ALT (4-34) U/L Alkaline Phosphatase (38-126) U/L Total Protein (6.3-8.2) g/dL Albumin (3.5-5.0) g/dL Amylase (30-110) U/L Lipase (23-300) U/L Urine Color Light Yellow Urine Appearance Clear (Clear) Urine pH 5.5 (5.0-8.0) Ur Specific [place] >1.050 H (1.001-1.035) Urine Protein Negative (Negative) Urine Glucose (UA) Negative (Negative) Urine Ketones Negative (Negative) Urine Blood Negative (Negative) Urine Nitrite Negative (Negative) Urine Bilirubin Negative (Negative) Urine Urobilinogen <2.0 (<2.0) mg/dL Ur Leukocyte Esterase Small H (Negative) Urine RBC 3 (0-5) /hpf Urine WBC 6 H (0-5) /hpf Ur Squamous Epith Cells 12 H (0-4) /hpf Urine Mucus Rare H (None) /hpf Urine HCG, Qual Not Detected (Not Detectd) - EKG Data -: EKG Interpreted by Me EKG Comments: EKG taken at 18: 04 showing a sinus bradycardia. No acute ST segment or T wave abnormalities. Normal axis. Ventricular rate 40, CT interval 206, QRS duration 93, QT/QTc 490/427. - Radiology Data Radiology results: report reviewed, image reviewed Disposition Clinical Impression: Abdominal pain Disposition: HOME SELF-CARE Condition: Stable Instructions (If sedation given, give patient instructions): Abdominal Pain (ED) Additional Instructions: Follow-up with PCP. Return to the ER for any new or worsening concerns. Is patient prescribed a controlled substance at d/c from ED?: No Referrals: Brandie Simon MD [Primary Care Provider] - 1-2 days Time of Disposition: 18:20
[2024-03-11] MEDS: SODIUM CHLORIDE 0.9% 1,000 ML IV STA (15:58)
[2024-03-11] MEDS: ONDANSETRON 4 MG/2 ML VIAL IVP STA (15:58)
[2024-03-11] MEDS: KETOROLAC 15 MG/ML 1 ML VIAL IVP STA (15:59)
[2024-03-11] MEDS: PANTOPRAZOLE 40 MG/10 ML VIAL IVP STA (16:00)
[2024-03-11 16:22] LABS: Basophils # (A) 0.1 k/uL (0-0.2); Basophils % (A) 1 %; Eosinophils # (A) 0.2 k/uL (0-0.7); Eosinophils % (A) 4 %; HCT 39.9 % (34.0-46.0); HGB 13.5 gm/dL (11.4-16.0); Lymphocytes # (A) 2.6 k/uL (1.0-4.8); Lymphocytes % (A) 48 %; MCH 30.4 pg (25.0-35.0); MCHC 33.8 g/dL (31.0-37.0); MCV 89.8 fL (80.0-100.0); Mean Platelet Volume 6.3; Monocytes # (A) 0.3 k/uL (0-1.0); Monocytes % (A) 5 %; Neutrophils # (A) 2.1 k/uL (1.3-7.7); Neutrophils % (A) 40 %; Platelet Count 237 k/uL (150-450); RBC 4.45 m/uL (3.80-5.40); RDW 11.7 % (11.5-15.5); WBC 5.4 k/uL (3.8-10.6)
[2024-03-11 16:34] LABS: ALT 16 U/L (4-34); AST 25 U/L (14-36); African American GFR (CKD) >90 (>60 ml/min/1.73 sqM); Alkaline Phosphatase 55 U/L (38-126); Amylase 77 U/L (30-110); Anion Gap 5 mmol/L; Blood Urea Nitrogen 18 mg/dL (7-17); Calcium 9.7 mg/dL (8.4-10.2); Carbon Dioxide 33 mmol/L (22-30); Chloride 100 mmol/L (98-107); Glucose 85 mg/dL (74-99); Lipase 115 U/L (23-300); Non-African American GFR(CKD) >90 (>60 ml/min/1.73 sqM); Potassium 4.3 mmol/L (3.5-5.1); Sodium 138 mmol/L (137-145); Total Bilirubin 0.7 mg/dL (0.2-1.3); Total Protein 7.7 g/dL (6.3-8.2)
--- NOTE | 2024-03-11 16:52 | CT ---
EXAMINATION TYPE: CT abdomen pelvis w con DATE OF EXAM: 03/11/2024 4:31 PM COMPARISON: None. CLINICAL INDICATION: Female, 43 years old with history of RLQ abd pain/ nausea; RLQ PAIN TECHNIQUE: Axial CT abdomen pelvis w con;Sagittal and coronal reformats were created on a separate w orkstation. Contrast used:100ML mL of Isovue 300 with IV Contrast, (none if empty) Oral contrast used: without Oral Contrast (none if empty) CT DLP: 1209 mGycm, Automated exposure control for dose reduction was used. FINDINGS: LOWER CHEST: Unremarkable ABDOMEN LIVER: Unremarkable GALLBLADDER AND BILE DUCTS: Unremarkable. PANCREAS: Unremarkable. SPLEEN: Unremarkable. ADRENAL GLANDS: Unremarkable. KIDNEYS AND URETERS: No evidence of hydronephrosis or renal calculus. The ureters are unremarkable. PELVIS BLADDER: No evidence for wall thickening or mass given limitations of exam. REPRODUCTIVE: Unremarkable. ABDOMEN & PELVIS STOMACH AND BOWEL: No evidence of bowel obstruction. Appendix is normal. Postsurgical changes gastric lumen. PERITONEUM/RETROPERITONEUM: No evidence of pneumoperitoneum or free fluid. VASCULATURE: No evidence of aortic aneurysm. MUSCULOSKELETAL: No acute osseous abnormalities LYMPH NODES: No gross evidence for lymphadenopathy. SOFT TISSUE/ABDOMINAL WALL: Unremarkable IMPRESSION: No evidence for acute abdominal process. The appendix is normal. No obstructive uropathy or renal citlaly culus. [facility], , 03/11/2024 4:49 PM
[2024-03-11 17:03] VITALS: RESP 16
[2024-03-11 17:14] LABS: Appearance,Urine Clear (Clear); Bilirubin,Urine Negative (Negative); Blood,Urine Negative (Negative); Color,Urine Light Yellow; Glucose,Urine (UA) Negative (Negative); Ketones,Urine Negative (Negative); Leukocyte Esterase,Urine Small (Negative); Mucus,Urine Rare /hpf; Nitrite,Urine Negative (Negative); PH, Urine 5.5 (5.0-8.0); Protein,Urine Negative (Negative); RBC,Urine 3 /hpf (0-5); Squamous Epithelial Cell,Urine 12 /hpf (0-4); Urobilinogen,Urine <2.0 mg/dL (<2.0); WBC,Urine 6 /hpf (0-5)
[2024-03-11 17:15] LABS: Specific Gravity,Urine >1.050 (1.001-1.035)
[2024-03-11 18:27] VITALS: BP 106/80; PULSE 40; TEMP 97.7
== END 2024-03-11 18:35 | disposition home or self-care (01) ==
LOC: EC 15:25
DX: R10.31 Right lower quadrant pain (principal); R00.1 Bradycardia, unspecified; Z87.891 Personal history of nicotine dependence; Z91.018 Allergy to other foods; Z91.040 Latex allergy status
CPT/HCPCS: 36415; 93005; 80053; 82150; 83605; 83690; 85025; 81001; 81025; 74177; 99285; 96374; 96375 ×2; 96361; J2405; J1885; Q9967; J2470

== ENCOUNTER → 2024-04-24 | Outpatient (CLI) | payer OTHER ==
[2024-04-24 13:45] VITALS: BP 119/81; PULSE 42; RESP 16; TEMP 97.5; BMI 31.0
--- NOTE | 2024-04-24 13:59 | P.BASOAP ---
Subjective Progress Note Date: 04/24/24 Principal diagnosis: Morbid obesity Patient returns for recheck. She was last seen in October of last year. He has gained a little bit of weight since then. Says that her son recently learned how to make cookies and he has been doing it on the regular. No nausea or vomiting. Rare episodes of heartburn. Heartburn controlled with intermittent antiacids. Was having some lower abdominal right-sided pain. Went to the ER and had a CAT scan. CAT scan does not show any definite abnormalities. Since then has had some vague right upper quadrant pains at times. Objective - Vital Signs Vital signs: Vital Signs Temp 97.5 F L 04/24/24 13:42 Pulse 42 L 04/24/24 13:42 Resp 16 04/24/24 13:42 BP 119/81 04/24/24 13:42 Pulse Ox FiO2 Intake & Output 04/23/24 04/24/24 04/24/24 18:59 06:59 18:59 Weight 85.275 kg - Exam Abdomen: Soft, nontender, nondistended Assessment/Plan (1) Morbid obesity Narrative/Plan: Patient doing fairly well at this time. Continue dietary and exercise regimen. Monitor for gaining weight. As needed antiacids. Patient is not interested in any further gallbladder workup however if pain persists or increase further advise gallbladder ultrasound. Check 2-year labs at this time. Follow-up 1 year. Plan: Date: 04/24/24 Initial Weight: 119.295 kg Initial BMI: 43.4 Current Weight: 85.275 kg Current BMI: 31.0 Type of Surgery: Vertical Sleeve Gastrectomy Total Volume in Band: Previous Volume: Volume Removed: Volume Added: Band Size:
[2024-04-24 19:14] LABS: HCT 39.2 % (37.2-46.3); MCH 30.4 pg (27.0-32.0); MCHC 33.2 g/dL (32.0-37.0); MCV 91.8 FL (80.0-97.0); Mean Platelet Volume 8.7 FL (9.5-12.2); NRBC Per 100 WBC 0 X 10*3/uL (0.00-0.01); Platelet Count 295 X 10*3/uL (140-440); RBC 4.27 X 10*6/uL (4.10-5.20); RDW 12.5 % (11.5-14.5); WBC 5.47 X 10*3/uL (4.50-10.00)
[2024-04-24 19:28] LABS: ALT 22 U/L (8-44); AST 24 U/L (13-35); Albumin 4.4 g/dL (3.8-4.9); Alkaline Phosphatase 58 U/L (41-126); Blood Urea Nitrogen 12.9 mg/dL (9.0-27.0); Calcium 9.2 mg/dL (8.7-10.3); Carbon Dioxide 27.4 mmol/L (21.6-31.8); Chloride 103 mmol/L (96-109); Globulin 2.2 g/dL (1.6-3.3); Glucose 92 mg/dL (70-110); Iron 90 UG/DL (50-170); Potassium 4.8 mmol/L (3.5-5.5); Sodium 139 mmol/L (135-145); Total Bilirubin 0.4 mg/dL (0.3-1.2); Total Protein 6.6 g/dL (6.2-8.2)
== END ==
LOC: BARWHC3 13:29
PROVIDERS: ATTEND Surgery
DX: E66.01 Morbid (severe) obesity due to excess calories (principal); Z68.31 Body mass index [BMI] 31.0-31.9, adult; Z91.018 Allergy to other foods; Z91.040 Latex allergy status
CPT/HCPCS: 84425; 80053; 82607; 82746; 83540; 85027; 82306; G0463; 99211